=== PATIENT | male | born 1955 | race Caucasian/White ===

== ENCOUNTER → 2021-04-14 10:00 | Outpatient (CLI) | payer OTHER, SELFPAY ==
[2021-04-14 10:46] LABS: COVID19 -Nasal RAPID POSITIVE (Negative)
== END ==
PROVIDERS: PCP Nurse Practitioner Family; Referring Provider Nurse Practitioner; Visit Provider Nurse Practitioner
DX: U07.1 COVID-19 (principal); R05 Cough
CPT/HCPCS: 87635

== ENCOUNTER → 2021-04-14 10:17 | Outpatient (CLI) | payer OTHER, SELFPAY ==
--- NOTE | 2021-04-14 10:19 | DI.RAD.S_ITS ---
PROCEDURE: XR CHEST 2V INDICATIONS: cough TECHNIQUE: 2 views of the chest were acquired. COMPARISON: None. FINDINGS: Surgical changes and devices: None. Lungs and pleura: Mild generalized interstitial prominence can be seen. No pleural effusions or pneumothorax. Mediastinum: Mediastinal contours are normal. Heart size is normal. A moderate to large hiatal hernia is seen, with an air-fluid level. Bones and chest wall: No suspicious bony abnormalities. Age-appropriate bony degenerative changes are seen. Accentuated thoracic kyphosis is seen. Soft tissues appear unremarkable. IMPRESSION: Interstitial prominence is seen throughout. The interstitial prominence is nonspecific, yet may be related to pulmonary edema. Please consider atypical infection, including COVID pneumonia. Moderate to large hiatal hernia incidentally noted. Dictated by: Mike Peres M.D. on 04/14/2021 at 9:27 Approved by: Mike Peres M.D. on 04/14/2021 at 9:28
== END ==
PROVIDERS: PCP Nurse Practitioner Family; Referring Provider Nurse Practitioner; Visit Provider Nurse Practitioner
DX: U07.1 COVID-19 (principal); R06.2 Wheezing; R05 Cough; K44.9 Diaphragmatic hernia without obstruction or gangrene; M40.204 Unspecified kyphosis, thoracic region
CPT/HCPCS: 71046; 87635

== ENCOUNTER 2021-04-15 23:57 | Inpatient (IN) | payer OTHER, SELFPAY ==
[2021-04-15] MEDS: LIDOCAINE JELLY 2% 5 ML 5 APPLIC TOP (23:58)
[2021-04-16] VITALS (20 sets, daily range): BP systolic 114–169; BP diastolic 70–99; PULSE 76–90; RESP 17–37; TEMP 36.5–38.1; O2SAT 87–95; BMI 33.6
--- NOTE | 2021-04-16 00:09 | ED_ITS ---
HPI - SOB/Dyspnea General Chief Complaint: Shortness of Breath/Dyspnea Stated Complaint: difficulty breathing Time Seen by Provider: 04/16/21 00:08 History of Present Illness HPI Narrative: 65-year-old male nonsmoker with history of asthma and hypertension presents with a chief complaint of worsening shortness of breath and cough for the past few days. He had had a moderate hacking cough that actually started few weeks ago but definitely had worsened over the past few days. He had a COVID test a few days ago and was called yesterday suggesting it was positive. He has had fever and chills as well as some nasal congestion and sore throat. He has mild body aches but no rigors. He has been nauseated and had decreased appetite has lost 12 lb. He denies any vomiting or diarrhea. Patient PCP is Yesi. Related Data Home Medications Medication Instructions Recorded Confirmed ketoconazole 2 % shampoo 1 applictn TOP 2XW PRN ml 04/07/19 04/14/21 ranitidine HCl 150 mg tablet 150 mg PO Q3D tab 10/18/19 04/14/21 Previous Rx's Medication Instructions Recorded losartan 50 mg tablet 50 mg PO DAILY #90 tab 10/19/19 hydrochlorothiazide 12.5 mg tablet 12.5 mg PO DAILY #30 tab 11/01/20 albuterol sulfate 90 mcg/actuation 2 puff INHALATION Q4-6H PRN #8.5 g 04/14/21 aerosol inhaler benzonatate 100 mg capsule 100 mg PO BID PRN #20 cap 04/14/21 (Tessalon Perles) inhalational spacing device #1 ea 04/14/21 (B[employer]he[employer] MDI Spacer) Allergies Allergy/AdvReac Type Severity Reaction Status Date / Time No Known Drug Allergies Allergy Verified 04/16/21 00:10 Review of Systems Review of Systems Narrative: GENERAL: See HPI HEENT: See HPI RESPIRATORY: See HPI CARDIOVASCULAR: Denies chest pain, palpitations, orthopnea, edema, GASTROINTESTINAL: Denies nausea, vomiting, abdominal pain, diarrhea, constipation, melena. : Denies dysuria, frequency, incontinence, hematuria, urinary retention. MUSCULOSKELETAL: denies weakness, joint pain, or bony pain SKIN: Denies rash, skin lesions, or other NEUROLOGIC: Denies weakness, headache, numbness, change in speech, confusion, seizures, incoordination. PSYCHIATRIC: No concerning psychosocial issues. 12 point review of systems is negative except for those stated above Patient History Surgical History Status post hernia repair Status post knee surgery Social History household members: spouse Smoking Status: Never smoker second hand exposure: Yes (I was when I was growing up) alcohol intake: never substance use type: does not use Smoking Status: Never smoker Exam Narrative Exam Narrative: GENERAL: [65] year old patient appears stated age. Well- developed patient, in mild distress. Increased work of breathing, pulse ox in mid 80s on room air at arrival HEAD: Atraumatic. Normocephalic. EYES: Pupils equal round and reactive. Extraocular motions intact. No scleral icterus. No injection or drainage. ENT: Nose without bleeding, purulent drainage. Throat without erythema, tonsillar hypertrophy or exudate. Airway patent. NECK: Trachea midline. Non tender CARDIOVASCULAR: Regular rate and rhythm without murmurs, gallops, or rubs. RESPIRATORY: Crackles throughout, increased work of breathing noted GASTROINTESTINAL: Abdomen soft, non-tender, nondistended. EXTREMITIES: No edema or joint tenderness. BACK: Nontender without deformity or crepitance. No flank tenderness. NEURO: AOx3. SKIN: No rash or erythema of visible areas Initial Vital Signs Initial Vital Signs: Vital Signs Pulse Rate 88 04/16/21 00:07 Pulse Oximetry 87 L 04/16/21 00:07 Course Orders Ordered: ED Orders 04/16/21 00:10 XR chest 1V Stat Arterial Blood Gas Stat EKG-12 Lead Stat 04/16/21 00:30 Blood Culture Stat C-Reactive Protein Quant Stat Complete Blood Count AUTO DIFF Stat Comprehensive Metabolic Panel Stat D Dimer Stat Ferritin Stat Lactate (Lactic Acid) Stat Lactate Dehydrogenase Stat NT-proBNP (BNP-Adult 18+) Stat Procalcitonin Stat Troponin & CK Cardiac Panel Stat 04/16/21 00:40 Respiratory Panel (Film Array) Stat Benzonatate (Benzonatate 100 Mg Capsule) 100 mg PO BID PRN PRN Reason: cough Enoxaparin Sodium (Enoxaparin 40 Mg/0.4 Ml Syringe) 40 mg SUBCUT DAILY KITA Losartan Potassium (Losartan 50 Mg Tablet) 50 mg PO DAILY KITA Non-Formulary Medication (Hydrochlorothiazide) 12.5 mg PO DAILY KITA Discontinued Medications Acetaminophen (Acetaminophen 325 Mg Tablet) 650 mg PO NOW ONE Stop: 04/16/21 00:55 Last Admin: 04/16/21 00:57 Dose: 650 mg Documented by: REJI Dexamethasone (Dexamethasone 10 Mg/Ml Vial) 6 mg IV NOW ONE Stop: 04/16/21 00:10 Last Admin: 04/16/21 00:48 Dose: 6 mg Documented by: DAPHNEY Remdesivir 200 mg/ Sodium (Chloride) 250 mls @ 250 mls/hr IV NOW ONE Stop: 04/16/21 00:10 Last Infusion: 04/16/21 02:02 Dose: 0 mls/hr Documented by: Admin: 04/16/21 00:48 Dose: 250 mls/hr Documented by: DAPHNEY Reevaluation(s) Reevaluation #1: Patient improves to SpO2 of low 90s with 2-3 L by nasal cannula Vital Signs Vital signs: Vital Signs - 8 hr 04/16/21 00:07 04/16/21 00:10 04/16/21 00:30 Temperature Pulse Rate 88 87 80 Respiratory Rate 28 H Blood Pressure 142/79 H Pulse Oximetry 87 L 88 L 92 04/16/21 00:31 04/16/21 00:57 04/16/21 00:58 Temperature 100.5 F H 100.5 F H Pulse Rate 82 Respiratory Rate Blood Pressure 136/78 Pulse Oximetry 91 04/16/21 01:00 04/16/21 01:30 04/16/21 02:00 Temperature Pulse Rate 81 79 80 Respiratory Rate 24 37 H 33 H Blood Pressure 152/76 H 160/81 H 169/98 H Pulse Oximetry 91 91 93 04/16/21 02:05 04/16/21 02:30 Temperature 98.7 F Pulse Rate 85 Respiratory Rate Blood Pressure 168/88 H Pulse Oximetry 91 MDM - SOB/Dyspnea Lab Data Result diagrams: 04/16/21 00:30 04/16/21 00:30 Labs: Lab Results 04/16/21 04/16/21 04/16/21 Range/Units 00:10 00:30 00:30 WBC (4.5-11.0) X10^3/uL RBC (4.5-5.9) X10^6/uL Hgb (13.5-17.5) g/dL Hct (41-53) % MCV (80-100) fL MCH (26-34) PG MCHC (30-36) % RDW (11.6-14.8) % Plt Count (150-400) X10^3/uL Neut % (Auto) (50-75) % Lymph % (Auto) (25-40) % Real % (Auto) (3-14) % Eos % (Auto) (2-4) % Baso % (Auto) (0-2) % Neut # (Auto) (7058-2620) /uL Lymph # (Auto) (4140-0374) /uL Real # (Auto) (0-900) /uL Eos # (Auto) (0-450) /uL Baso # (Auto) (0-100) /uL D-Dimer 552 H (<230) ng/mL ABG pH 7.50 H (7.35-7.45) ABG pCO2 32.4 L (35-45) mmHg ABG pO2 63 L (80-100) mmHg ABG HCO3 25 (22-26) mmol/L ABG Total CO2 26 (21-31) mmol/L ABG O2 Saturation 94 L (95-100) % ABG Base Excess 2.0 (-2-2) mmol/L FiO2 28 Sodium (137-145) mmol/L Potassium (3.4-5.1) mmol/L Chloride (98-107) mmol/L Carbon Dioxide (22-32) mmol/L BUN (9-20) mg/dL Creatinine (0.66-1.25) mg/dL Estimated GFR (>60) mL/min BUN/Creatinine Ratio (6-22) Glucose (80-110) mg/dL Lactate (0.7-2.1) mmol/L Calcium (8.4-10.2) mg/dL Ferritin (18-464) ng/mL Total Bilirubin (0.2-1.3) mg/dL AST (17-59) IU/L ALT (<50) IU/L Alkaline Phosphatase (38-126) U/L Lactate Dehydrogenase (313-618) U/L Total Creatine Kinase (55-170) U/L CK-MB (CK-2) (<2.37) ng/mL CK-MB (CK-2) Rel Index (1.5-5.0) % Troponin I (0.01-0.034) ng/mL C-Reactive Protein (<1.0) mg/dL NT-Pro-B Natriuret Pep (<125) pg/mL Total Protein (6.3-8.2) g/dL Albumin (3.5-5.0) g/dL Globulin (1.7-4.1) g/dL Albumin/Globulin Ratio (1.0-2.8) Procalcitonin 0.26 (<0.5) ng/mL Chlamy pneumoniae PCR (Not Detect) Adenovirus (PCR) (Not Detect) B. pertussis DNA (PCR) (Not Detecte) B.parapertussis DNA PCR (Not Detecte) Coronavirus OC43 (PCR) (Not Detect) Coronavirus HKU1 (PCR) (Not Detect) Coronavirus 229E (PCR) (Not Detect) SARS-CoV-2 (PCR) (Not Detecte) Coronavirus NL63 (PCR) (Not Detect) Human Metapneumovir PCR (Not Detect) Influenza Type A (PCR) (Not Detect) Influenza Type B (PCR) (Not Detect) M. pneumoniae (PCR) (Not Detect) Parainfluenza 1 (PCR) (Not Detect) Parainfluenza 2 (PCR) (Not Detect) Parainfluenza 3 (PCR) (Not Detect) Parainfluenza 4 (PCR) (Not Detect) RSV (PCR) (Not Detect) Entero/Rhino (PCR) (Not Detect) 04/16/21 04/16/21 04/16/21 Range/Units 00:30 00:30 00:30 WBC 7.9 (4.5-11.0) X10^3/uL RBC 4.63 (4.5-5.9) X10^6/uL Hgb 12.9 L (13.5-17.5) g/dL Hct 38.7 L (41-53) % MCV 83.6 (80-100) fL MCH 27.9 (26-34) PG MCHC 33.4 (30-36) % RDW 14.7 (11.6-14.8) % Plt Count 144 L (150-400) X10^3/uL Neut % (Auto) 89.9 H (50-75) % Lymph % (Auto) 5.5 L (25-40) % Real % (Auto) 4.2 (3-14) % Eos % (Auto) 0.0 L (2-4) % Baso % (Auto) 0.4 (0-2) % Neut # (Auto) 7100 H (7125-3759) /uL Lymph # (Auto) 400 L (5041-6003) /uL Real # (Auto) 300 (0-900) /uL Eos # (Auto) 0 (0-450) /uL Baso # (Auto) 0 (0-100) /uL D-Dimer (<230) ng/mL ABG pH (7.35-7.45) ABG pCO2 (35-45) mmHg ABG pO2 (80-100) mmHg ABG HCO3 (22-26) mmol/L ABG Total CO2 (21-31) mmol/L ABG O2 Saturation (95-100) % ABG Base Excess (-2-2) mmol/L FiO2 Sodium 140 (137-145) mmol/L Potassium 3.5 (3.4-5.1) mmol/L Chloride 105 (98-107) mmol/L Carbon Dioxide 26 (22-32) mmol/L BUN 35 H (9-20) mg/dL Creatinine 1.04 (0.66-1.25) mg/dL Estimated GFR > 60.0 (>60) mL/min BUN/Creatinine Ratio 33.7 H (6-22) Glucose 128 H (80-110) mg/dL Lactate 1.2 (0.7-2.1) mmol/L Calcium 8.5 (8.4-10.2) mg/dL Ferritin 266 (18-464) ng/mL Total Bilirubin 0.9 (0.2-1.3) mg/dL AST 148 H (17-59) IU/L ALT 59 H (<50) IU/L Alkaline Phosphatase 54 (38-126) U/L Lactate Dehydrogenase 1879 H (313-618) U/L Total Creatine Kinase 1572 H (55-170) U/L CK-MB (CK-2) 5.35 H (<2.37) ng/mL CK-MB (CK-2) Rel Index 0.3 L (1.5-5.0) % Troponin I 0.017 (0.01-0.034) ng/mL C-Reactive Protein 21.7 H (<1.0) mg/dL NT-Pro-B Natriuret Pep 166 H (<125) pg/mL Total Protein 6.9 (6.3-8.2) g/dL Albumin 3.7 (3.5-5.0) g/dL Globulin 3.2 (1.7-4.1) g/dL Albumin/Globulin Ratio 1.2 (1.0-2.8) Procalcitonin (<0.5) ng/mL Chlamy pneumoniae PCR (Not Detect) Adenovirus (PCR) (Not Detect) B. pertussis DNA (PCR) (Not Detecte) B.parapertussis DNA PCR (Not Detecte) Coronavirus OC43 (PCR) (Not Detect) Coronavirus HKU1 (PCR) (Not Detect) Coronavirus 229E (PCR) (Not Detect) SARS-CoV-2 (PCR) (Not Detecte) Coronavirus NL63 (PCR) (Not Detect) Human Metapneumovir PCR (Not Detect) Influenza Type A (PCR) (Not Detect) Influenza Type B (PCR) (Not Detect) M. pneumoniae (PCR) (Not Detect) Parainfluenza 1 (PCR) (Not Detect) Parainfluenza 2 (PCR) (Not Detect) Parainfluenza 3 (PCR) (Not Detect) Parainfluenza 4 (PCR) (Not Detect) RSV (PCR) (Not Detect) Entero/Rhino (PCR) (Not Detect) 04/16/21 Range/Units 00:40 WBC (4.5-11.0) X10^3/uL RBC (4.5-5.9) X10^6/uL Hgb (13.5-17.5) g/dL Hct (41-53) % MCV (80-100) fL MCH (26-34) PG MCHC (30-36) % RDW (11.6-14.8) % Plt Count (150-400) X10^3/uL Neut % (Auto) (50-75) % Lymph % (Auto) (25-40) % Real % (Auto) (3-14) % Eos % (Auto) (2-4) % Baso % (Auto) (0-2) % Neut # (Auto) (5154-4023) /uL Lymph # (Auto) (5794-2566) /uL Real # (Auto) (0-900) /uL Eos # (Auto) (0-450) /uL Baso # (Auto) (0-100) /uL D-Dimer (<230) ng/mL ABG pH (7.35-7.45) ABG pCO2 (35-45) mmHg ABG pO2 (80-100) mmHg ABG HCO3 (22-26) mmol/L ABG Total CO2 (21-31) mmol/L ABG O2 Saturation (95-100) % ABG Base Excess (-2-2) mmol/L FiO2 Sodium (137-145) mmol/L Potassium (3.4-5.1) mmol/L Chloride (98-107) mmol/L Carbon Dioxide (22-32) mmol/L BUN (9-20) mg/dL Creatinine (0.66-1.25) mg/dL Estimated GFR (>60) mL/min BUN/Creatinine Ratio (6-22) Glucose (80-110) mg/dL Lactate (0.7-2.1) mmol/L Calcium (8.4-10.2) mg/dL Ferritin (18-464) ng/mL Total Bilirubin (0.2-1.3) mg/dL AST (17-59) IU/L ALT (<50) IU/L Alkaline Phosphatase (38-126) U/L Lactate Dehydrogenase (313-618) U/L Total Creatine Kinase (55-170) U/L CK-MB (CK-2) (<2.37) ng/mL CK-MB (CK-2) Rel Index (1.5-5.0) % Troponin I (0.01-0.034) ng/mL C-Reactive Protein (<1.0) mg/dL NT-Pro-B Natriuret Pep (<125) pg/mL Total Protein (6.3-8.2) g/dL Albumin (3.5-5.0) g/dL Globulin (1.7-4.1) g/dL Albumin/Globulin Ratio (1.0-2.8) Procalcitonin (<0.5) ng/mL Chlamy pneumoniae PCR Not detected (Not Detect) Adenovirus (PCR) Not detected (Not Detect) B. pertussis DNA (PCR) Not detected (Not Detecte) B.parapertussis DNA PCR Not detected (Not Detecte) Coronavirus OC43 (PCR) Not detected (Not Detect) Coronavirus HKU1 (PCR) Not detected (Not Detect) Coronavirus 229E (PCR) Not detected (Not Detect) SARS-CoV-2 (PCR) Detected H (Not Detecte) Coronavirus NL63 (PCR) Not detected (Not Detect) Human Metapneumovir PCR Not detected (Not Detect) Influenza Type A (PCR) Not detected (Not Detect) Influenza Type B (PCR) Not detected (Not Detect) M. pneumoniae (PCR) Not detected (Not Detect) Parainfluenza 1 (PCR) Not detected (Not Detect) Parainfluenza 2 (PCR) Not detected (Not Detect) Parainfluenza 3 (PCR) Not detected (Not Detect) Parainfluenza 4 (PCR) Not detected (Not Detect) RSV (PCR) Not detected (Not Detect) Entero/Rhino (PCR) Not detected (Not Detect) MDM Narrative Medical decision making narrative: Patient with known COVID presents with increasing respiratory complaint and shortness of breath. He now requires supplemental oxygen. ABG notes P02 in low 60s on 2L. He will require hospitaliza tion for ongoing monitoring and stabilization of his condition. Given hospitalization requiring oxygen he has been given remdesivir and Decadron. Discharge Plan Departure Patient Disposition: Admitted As Inpatient Clinical Impression: COVID-19, Acute respiratory failure with hypoxemia Admit Date/Time: 04/16/21 02:53 Admit Provider: Vamshi Key
--- NOTE | 2021-04-16 00:10 | DI.RAD.S_ITS ---
PROCEDURE: XR CHEST 1V INDICATIONS: flu-like symptoms TECHNIQUE: One view of the chest was acquired. COMPARISON: None. FINDINGS: Surgical changes and devices: None. Lungs and pleura: Patchy opacities in the lungs bilaterally. No pleural effusions or pneumothorax. Mediastinum: Mediastinal contours appear normal. Heart size is normal. Bones and chest wall: No suspicious bony lesions. Overlying soft tissues appear unremarkable. IMPRESSION: Bilateral lung multilobar pneumonia. Dictated by: Gia Lewis MD, PhD on 04/16/2021 at 8:17 Approved by: Gia Lewis MD, PhD on 04/16/2021 at 8:17
[2021-04-16] MEDS: DEXAMETHASONE 10 MG/ML VIAL 6 MG IV ×2 (00:48→09:03)
[2021-04-16] MEDS: REMDESIVIR 200 MG in SODIUM CHLORIDE 0.9% 210 ML 250 ML IV (00:48)
[2021-04-16 00:56] LABS: Fractionated Inspired Oxygen 28; HCO3 ABG 25 mmol/L (22-26); Oxygen Saturation ABG 94 % (95-100); PCO2 ABG 32.4 mmHg (35-45); PO2 ABG 63 mmHg (80-100); TCO2 ABG 26 mmol/L (21-31)
[2021-04-16 00:56] LABS: Add Manual Diff / Slide Review NO; Basophils Absolute Auto 0 /uL (0-100); Basophils Percent Auto 0.4 % (0-2); Eosinophils Absolute Auto 0 /uL (0-450); Hematocrit 38.7 % (41-53); Hemoglobin 12.9 g/dL (13.5-17.5); Lymphocytes Absolute Auto 400 /uL (1100-4500); Lymphocytes Percent Auto 5.5 % (25-40); Mean Corpuscular HGB Conc 33.4 % (30-36); Mean Corpuscular Hemoglobin 27.9 PG (26-34); Mean Corpuscular Volume 83.6 fL (80-100); Monocytes Absolute Auto 300 /uL (0-900); Monocytes Percent Auto 4.2 % (3-14); Neutrophils Absolute Auto 7100 /uL (1500-7000); Neutrophils Percent Auto 89.9 % (50-75); Platelet Count 144 X10^3/uL (150-400); Red Blood Cell Count 4.63 X10^6/uL (4.5-5.9); Red Cell Distribution Width 14.7 % (11.6-14.8); White Blood Cell Count 7.9 X10^3/uL (4.5-11.0)
[2021-04-16] MEDS: ACETAMINOPHEN 325 MG TABLET 650 MG PO (00:57)
[2021-04-16 01:08] LABS: D Dimer 552 ng/mL (<230)
[2021-04-16 01:09] LABS: Lactate (Lactic Acid) 1.2 mmol/L (0.7-2.1)
[2021-04-16 01:21] LABS: Alanine Aminotransferase 59 IU/L (<50); Albumin 3.7 g/dL (3.5-5.0); Albumin Globulin Ratio 1.2 (1.0-2.8); Alkaline Phosphatase 54 U/L (38-126); Aspartate Aminotransferase 148 IU/L (17-59); BUN Creatinine Ratio 33.7 (6-22); Bilirubin Total 0.9 mg/dL (0.2-1.3); Blood Urea Nitrogen 35 mg/dL (9-20); Calcium 8.5 mg/dL (8.4-10.2); Carbon Dioxide 26 mmol/L (22-32); Chloride 105 mmol/L (98-107); Creatine Kinase 1572 U/L (55-170); Estimated Glomerular Filt Rate > 60.0 mL/min (>60); Globulin 3.2 g/dL (1.7-4.1); Glucose 128 mg/dL (80-110); HEMOLYSIS < 15 (0-50); Lactate Dehydrogenase 1879 U/L (313-618); Potassium 3.5 mmol/L (3.4-5.1); Sodium 140 mmol/L (137-145); Total Protein 6.9 g/dL (6.3-8.2)
[2021-04-16 01:27] LABS: Procalcitonin 0.26 ng/mL (<0.5)
[2021-04-16 01:30] LABS: NT-proBNP (BNP-Adult 18+) 166 pg/mL (<125); Troponin I 0.017 ng/mL (0.01-0.034)
[2021-04-16 01:33] LABS: CKMB % Relative Index 0.3 % (1.5-5.0); Creatine Kinase MB 5.35 ng/mL (<2.37)
[2021-04-16 01:39] LABS: C-Reactive Protein Quant 21.7 mg/dL (<1.0)
[2021-04-16 01:45] LABS: Adenovirus Not Detected (Not Detect); B. parapertussis Not Detected (Not Detecte); Bordetella pertussis Not Detected (Not Detecte); Chlamydophila pneumoniae Not Detected (Not Detect); Coronavirus 229E Not Detected (Not Detect); Coronavirus HKU1 Not Detected (Not Detect); Coronavirus NL 63 Not Detected (Not Detect); Coronavirus OC43 Not Detected (Not Detect); Human Metapneumovirus Not Detected (Not Detect); Human Rhinovirus/Enterovirus Not Detected (Not Detect); Influenza A Not Detected (Not Detect); Influenza B Not Detected (Not Detect); Mycoplasma pneumoniae Not Detected (Not Detect); Parainfluenza Virus 1 Not Detected (Not Detect); Parainfluenza Virus 2 Not Detected (Not Detect); Parainfluenza Virus 3 Not Detected (Not Detect); Parainfluenza Virus 4 Not Detected (Not Detect); Respiratory Syncytial Virus Not Detected (Not Detect)
[2021-04-16 01:51] LABS: SARS- CoV-2 Detected (Not Detecte)
[2021-04-16 01:53] LABS: Ferritin 266 ng/mL (18-464)
--- NOTE | 2021-04-16 04:21 | PC.NURSE ---
Pt. admitted to room 219 from ER. Oriented to his room, showed how to use his call light, TV & bed controls. Encouraged to call staff for any assistance or if he needed to go to the [facility]. Denies any fall at home, no C/O dyspnea, no wheezing noted. Intermittent non productive cough, no C/O pain. Will continue POC & monitor.
--- NOTE | 2021-04-16 08:43 | PM.HP.1 ---
History of Present Illness History of Present Illness Date Patient Seen: 04/16/21 Time Patient Seen: 08:44 Chief complaint: difficulty breathing Narrative: Mr. Dueñas is a very pleasant 65-year-old gentleman who is under the primary care of Dr. Key. He is otherwise fairly healthy other than hypertension and presents is emergency department with worsening shortness of breath with a known diagnosis of COVID-19 illness. He was found to have a O2 sat on room air of 85% and be tachypneic working hard to breathe. Laboratory data, a respiratory panel, inflammatory markers and chest x-ray all are suspicious for COVID-19 illness. The patient was given REMdesivir and Decadron in the ER and is feeling better today on 2 L of nasal cannula oxygen. Patient's history prior to admission is remarkable for having a dry cough starting in the beginning of March. He presented to see his primary care doctor and had COVID testing on March 20. This was negative. He continued to have a dry cough and feels that his symptoms worsened and he felt more poorly and cough was worsening in the beginning of April. He had his 1st COVID vaccine on April 10. He then was tested for COVID on April 11 and was positive. His symptoms became significantly worse last night prior to admission and he was found to be hypoxic admitted for the same. He denies nausea, vomiting, diarrhea. He does complain of diaphoresis. He denies any chest pain. He denies any lower extremity edema. He denies any headaches or myalgias. He denies any abdominal pain Past medical history: 1. GERD 2. Hypertension 3. History of SVT, no current treatment 4. Erectile dysfunction Medications: Losartan 50 mg daily Hydrochlorothiazide 12.5 mg daily Multi-vitamin daily Omeprazole 20 mg daily Allergies no known drug allergies Past surgical history 1. Hernia repair in May of 2018 2. Knee surgery Family history Father at 82 of natural causes and had had a prior stroke Mother at 76 of lung cancer. Mother also had hypertension Patient with 3 siblings who are alive and well Health related behavior: Patient is a nonsmoker and never has been a smoker Patient does not use regular alcohol Patient does not use illicit drugs Social history Patient is Patient has 2 children Jennifer born In 1979 and Everardo born in 1982 Patient is retired and lives in an [facility] Review of systems negative other than HPI Patient History Surgical History Status post hernia repair Status post knee surgery Family & Social History Social History: household members spouse Prior Living Arrangements House Safety & Behavioral: Feels Safe in Current Yes Environment Been Physically Hurt or No Threatened By a Person Suicidal Ideation Description None Suicide Plan Description No Plan Tobacco & Substance use: Smoking Status Never smoker alcohol intake never Substance Use Type does not use Meds Home Medications and Allergies Home Medications Medication Instructions Recorded Confirmed Type ranitidine HCl 150 mg tablet 150 mg PO Q3D tab 10/18/19 04/16/21 History losartan 50 mg tablet 50 mg PO DAILY #90 tab 10/19/19 04/16/21 Rx hydrochlorothiazide 12.5 mg tablet 12.5 mg PO DAILY #30 tab 11/01/20 04/16/21 Rx albuterol sulfate 90 mcg/actuation 2 puff INHALATION Q4-6H PRN #8.5 g 04/14/21 04/16/21 Rx aerosol inhaler benzonatate 100 mg capsule 100 mg PO BID PRN #20 cap 04/14/21 04/16/21 Rx (Tessalon Perles) inhalational spacing device #1 ea 04/14/21 04/16/21 Rx (BreatheRite MDI Spacer) Allergies Allergy/AdvReac Type Severity Reaction Status Date / Time No Known Drug Allergies Allergy Verified 04/16/21 00:10 Review of Systems Review of Systems Narrative: Negative other than HPI Exam Vital Signs (past 8 hours): - 04/16/21 00:57 04/16/21 00:58 04/16/21 01:00 Temperature 100.5 F H 100.5 F H Pulse Rate 81 Respiratory Rate 24 Blood Pressure 152/76 H Pulse Oximetry 91 04/16/21 01:30 04/16/21 02:00 04/16/21 02:05 Temperature 98.7 F Pulse Rate 79 80 Respiratory Rate 37 H 33 H Blood Pressure 160/81 H 169/98 H Pulse Oximetry 91 93 04/16/21 02:30 04/16/21 03:15 Temperature 98.0 F Pulse Rate 85 84 Respiratory Rate 18 Blood Pressure 168/88 H 114/71 Pulse Oximetry 91 95 Oxygen Delivery Method Room Air Oxygen Flow Rate 2 Narrative Exam Narrative: Patient is alert and oriented no apparent distress. He sitting upright on the hospital bed no apparent distress. There is no increased work of breathing. He is resting comfortably with 2 L of nasal cannula oxygen Vital signs are stable O2 sats 95% on 2 L nasal cannula HEENT is unremarkable Neck: Supple without adenopathy or thyromegaly or bruits Chest: Bibasilar crackles but otherwise clear to auscultation Cor: Regular rate and rhythm without a murmur Abdomen: Positive bowel sounds, soft, obese Extremities: Trace nonpitting edema pretibial Pulses intact Neurologic exam nonfocal Objective Labs Result Diagrams: 04/16/21 00:30 04/16/21 00:30 Labs: Laboratory Results - last 24 hr 04/16/21 04/16/21 04/16/21 00:30 00:30 WBC RBC Hgb Hct MCV MCH MCHC RDW Plt Count Neut % (Auto) Lymph % (Auto) Stanly % (Auto) Eos % (Auto) Baso % (Auto) Neut # (Auto) Lymph # (Auto) Stanly # (Auto) Eos # (Auto) Baso # (Auto) D-Dimer 552 H ABG pH 7.50 H ABG pCO2 32.4 L ABG pO2 63 L ABG HCO3 25 ABG Total CO2 26 ABG O2 Saturation 94 L ABG Base Excess 2.0 FiO2 28 Sodium Potassium Chloride Carbon Dioxide BUN Creatinine Estimated GFR BUN/Creatinine Ratio Glucose Lactate Calcium Ferritin Total Bilirubin AST ALT Alkaline Phosphatase Lactate Dehydrogenase Total Creatine Kinase CK-MB (CK-2) CK-MB (CK-2) Rel Index Troponin I C-Reactive Protein NT-Pro-B Natriuret Pep Total Protein Albumin Globulin Albumin/Globulin Ratio Procalcitonin 0.26 Chlamy pneumoniae PCR Adenovirus (PCR) B. pertussis DNA (PCR) B.parapertussis DNA PCR Coronavirus OC43 (PCR) Coronavirus HKU1 (PCR) Coronavirus 229E (PCR) SARS-CoV-2 (PCR) Coronavirus NL63 (PCR) Human Metapneumovir PCR Influenza Type A (PCR) Influenza Type B (PCR) M. pneumoniae (PCR) Parainfluenza 1 (PCR) Parainfluenza 2 (PCR) Parainfluenza 3 (PCR) Parainfluenza 4 (PCR) RSV (PCR) Entero/Rhino (PCR) 04/16/21 04/16/21 04/16/21 00:30 00:30 00:30 WBC 7.9 RBC 4.63 Hgb 12.9 L Hct 38.7 L MCV 83.6 MCH 27.9 MCHC 33.4 RDW 14.7 Plt Count 144 L Neut % (Auto) 89.9 H Lymph % (Auto) 5.5 L Stanly % (Auto) 4.2 Eos % (Auto) 0.0 L Baso % (Auto) 0.4 Neut # (Auto) 7100 H Lymph # (Auto) 400 L Stanly # (Auto) 300 Eos # (Auto) 0 Baso # (Auto) 0 D-Dimer ABG pH ABG pCO2 ABG pO2 ABG HCO3 ABG Total CO2 ABG O2 Saturation ABG Base Excess FiO2 Sodium 140 Potassium 3.5 Chloride 105 Carbon Dioxide 26 BUN 35 H Creatinine 1.04 Estimated GFR > 60.0 BUN/Creatinine Ratio 33.7 H Glucose 128 H Lactate 1.2 Calcium 8.5 Ferritin 266 Total Bilirubin 0.9 AST 148 H ALT 59 H Alkaline Phosphatase 54 Lactate Dehydrogenase 1879 H Total Creatine Kinase 1572 H CK-MB (CK-2) 5.35 H CK-MB (CK-2) Rel Index 0.3 L Troponin I 0.017 C-Reactive Protein 21.7 H NT-Pro-B Natriuret Pep 166 H Total Protein 6.9 Albumin 3.7 Globulin 3.2 Albumin/Globulin Ratio 1.2 Procalcitonin Chlamy pneumoniae PCR Adenovirus (PCR) B. pertussis DNA (PCR) B.parapertussis DNA PCR Coronavirus OC43 (PCR) Coronavirus HKU1 (PCR) Coronavirus 229E (PCR) SARS-CoV-2 (PCR) Coronavirus NL63 (PCR) Human Metapneumovir PCR Influenza Type A (PCR) Influenza Type B (PCR) M. pneumoniae (PCR) Parainfluenza 1 (PCR) Parainfluenza 2 (PCR) Parainfluenza 3 (PCR) Parainfluenza 4 (PCR) RSV (PCR) Entero/Rhino (PCR) 04/16/21 00:40 WBC RBC Hgb Hct MCV MCH MCHC RDW Plt Count Neut % (Auto) Lymph % (Auto) Stanly % (Auto) Eos % (Auto) Baso % (Auto) Neut # (Auto) Lymph # (Auto) Stanly # (Auto) Eos # (Auto) Baso # (Auto) D-Dimer ABG pH ABG pCO2 ABG pO2 ABG HCO3 ABG Total CO2 ABG O2 Saturation ABG Base Excess FiO2 Sodium Potassium Chloride Carbon Dioxide BUN Creatinine Estimated GFR BUN/Creatinine Ratio Glucose Lactate Calcium Ferritin Total Bilirubin AST ALT Alkaline Phosphatase Lactate Dehydrogenase Total Creatine Kinase CK-MB (CK-2) CK-MB (CK-2) Rel Index Troponin I C-Reactive Protein NT-Pro-B Natriuret Pep Total Protein Albumin Globulin Albumin/Globulin Ratio Procalcitonin Chlamy pneumoniae PCR Not detected Adenovirus (PCR) Not detected B. pertussis DNA (PCR) Not detected B.parapertussis DNA PCR Not detected Coronavirus OC43 (PCR) Not detected Coronavirus HKU1 (PCR) Not detected Coronavirus 229E (PCR) Not detected SARS-CoV-2 (PCR) Detected H Coronavirus NL63 (PCR) Not detected Human Metapneumovir PCR Not detected Influenza Type A (PCR) Not detected Influenza Type B (PCR) Not detected M. pneumoniae (PCR) Not detected Parainfluenza 1 (PCR) Not detected Parainfluenza 2 (PCR) Not detected Parainfluenza 3 (PCR) Not detected Parainfluenza 4 (PCR) Not detected RSV (PCR) Not detected Entero/Rhino (PCR) Not detected Assessment & Plan Assessment & Plan narrative: 65-year-old male admitted with respiratory illness causing hypoxia due to COVID-19 illness Plan: Patient will be admitted to the hospital and expect at least 2 midnight stays due to current illness. Will continue Decadron 6 mg daily and REMdesivir 100 mg daily for 10 days or will discontinue once oxygen requirements subside. Will reassess inflammatory markers in a.m. Will continue with supplemental oxygen plan Will continue with respiratory therapy and albuterol nebulizers as needed Assessment 2. Hypertension well controlled Plan: Continue outpatient medications of losartan and hydrochlorothiazide Assessment 3. Normocytic anemia. Peers he had this in 2018 as well. Plan: Will continue to trend. Assessment 4. History of GERD Plan: Will continue with PPI A total of 65 minutes was spent with patient discussing with ER physician, reviewing chart meeting with patient, documenting and formulating a plan Code status is full code Quality VTE Deep Vein Thrombosis/Pulmonary Embolism Present on Admission: No
[2021-04-16] MEDS: ENOXAPARIN 40 MG/0.4 ML SYRINGE SUBCUT (09:04)
[2021-04-16] MEDS: LOSARTAN 50 MG TABLET PO (09:04)
[2021-04-16] MEDS: hydroCHLOROthiazide 25 MG TABLET 12.5 MG PO (09:04)
[2021-04-16] MEDS: SODIUM CHLORIDE 0.9% FLUSH 10 ML IV ×2 (09:05→21:32)
--- NOTE | 2021-04-16 10:50 | CM.DANOTE ---
DCP: Case received, EMR reviewed. Did not meet with patient, secondary to being COVID positive. Attempted to call room, no answer. Completed DCP assessment based upon information available. Patient is a 65 year old male who admitted early this morning to the care of the hospitalist team. PCP: Dr Key Payer: confirmed: [employer]. Patient came to the hospital via private vehicle secondary to increased shortness of breath. Patient holds diagnosis of COVID/Pneumonia. Patient had a cough in March, was tested then for COVID, and was negative. He received first vaccine on 04/10, was tested on 04/11 and was positive. Patient has noted hypoxia, and is here for oxygen support. He also has history of asthma, as well as HTN. Patient resides in [place] with his , Becky. He looks to be independent upon his baseline based upon information in the chart. Attempted to call patient's room with no answer, and no cell phone. P: DCP will continue to check in and monitor for any needs. Patient should be able to go home when he is medically stable. Gregoria Rendon, OLEKSANDR/Tech Ed/Woodshop Teacher
[2021-04-16] MEDS: BENZONATATE 100 MG CAPSULE PO (11:12)
--- NOTE | 2021-04-16 14:46 | PC.NURSE ---
A&Ox4. VSS. On 2L nasal cannula sating 90%. Non productive cough, given PRN benzonatate which provided mild relief. Denies pain. Independent in room. No nausea of vomiting. Good appetite. Call light within reach, bed low.
--- NOTE | 2021-04-16 18:53 | PC.NURSE ---
Addendum entered by Chrissy Nesbitt R.N. 04/16/21 19:08: Dr. Mendoza discussed with Dr. Elias and MOJGAN Henderson. They recommend proning while sleeping, RT consult, lorazepam which has been ordered already, as well as codeine for cough Original Note: Call placed to Dr. Mendoza who is blood donor unit assistant due to patient requiring 3.5 to 4L of oxygen at this point (increased from 1.5L on day shift). Patient oxygen saturation is at 91%. Dr. Mendoza was made aware of increased oxygen needs. Also discussed possible medication for sleep as patient has not slept since 0700 yesterday. Lorazepam 0.5mg q2hrs prn for sleep/anxiety as ordered.
[2021-04-16] MEDS: LORazepam 2 MG/ML INJ 0.5 MG IV (19:24)
[2021-04-16] MEDS: BENZONATATE 100 MG CAPSULE 200 MG PO ×2 (19:24→21:32)
[2021-04-16] MEDS: guaiFENesin ER 600 MG TAB PO (21:32)
[2021-04-16] MEDS: REMDESIVIR 100 MG in SODIUM CHLORIDE 0.9% 230 ML 250 ML IV (21:32)
[2021-04-16] MEDS: SODIUM CHLORIDE 0.9% 250 ML 21 ML IV (21:40)
[2021-04-16] MEDS: ALBUTEROL 2.5 MG/3 ML NEB (ADULT) INH (23:03)
[2021-04-17] VITALS (24 sets, daily range): BP systolic 119–159; BP diastolic 57–95; PULSE 72–96; RESP 12–36; TEMP 31–37.2; O2SAT 84–97
[2021-04-17] MEDS: LORazepam 2 MG/ML INJ 0.5 MG IV ×3 (03:54→20:54)
[2021-04-17 05:07] LABS: pH ABG 7.49 (7.35-7.45)
[2021-04-17 05:08] LABS: HCO3 ABG 27 mmol/L (22-26); Oxygen Saturation ABG 93 % (95-100); PCO2 ABG 35.7 mmHg (35-45); PO2 ABG 62 mmHg (80-100); TCO2 ABG 28 mmol/L (21-31)
[2021-04-17 05:11] LABS: Fractionated Inspired Oxygen 80
[2021-04-17] MEDS: ALBUTEROL 2.5 MG/3 ML NEB (ADULT) INH ×4 (06:20→23:41)
[2021-04-17 06:31] LABS: Add Manual Diff / Slide Review NO; Basophils Absolute Auto 0 /uL (0-100); Basophils Percent Auto 0.2 % (0-2); Eosinophils Absolute Auto 0 /uL (0-450); Hemoglobin 12.2 g/dL (13.5-17.5); Lymphocytes Absolute Auto 600 /uL (1100-4500); Lymphocytes Percent Auto 7.1 % (25-40); Mean Corpuscular Hemoglobin 27.7 PG (26-34); Monocytes Absolute Auto 600 /uL (0-900); Monocytes Percent Auto 7.1 % (3-14); Neutrophils Absolute Auto 7500 /uL (1500-7000); Neutrophils Percent Auto 85.6 % (50-75); Platelet Count 205 X10^3/uL (150-400); Red Blood Cell Count 4.41 X10^6/uL (4.5-5.9); Red Cell Distribution Width 14.9 % (11.6-14.8); White Blood Cell Count 8.8 X10^3/uL (4.5-11.0)
[2021-04-17 06:40] LABS: Alanine Aminotransferase 53 IU/L (<50); Albumin 3.2 g/dL (3.5-5.0); Albumin Globulin Ratio 1.1 (1.0-2.8); Alkaline Phosphatase 45 U/L (38-126); Aspartate Aminotransferase 92 IU/L (17-59); BUN Creatinine Ratio 49.4 (6-22); Bilirubin Total 0.6 mg/dL (0.2-1.3); Blood Urea Nitrogen 44 mg/dL (9-20); Calcium 8.4 mg/dL (8.4-10.2); Carbon Dioxide 29 mmol/L (22-32); Chloride 106 mmol/L (98-107); Estimated Glomerular Filt Rate > 60.0 mL/min (>60); Glucose 144 mg/dL (80-110); HEMOLYSIS < 15 (0-50); Lactate Dehydrogenase 1335 U/L (313-618); Potassium 3.9 mmol/L (3.4-5.1); Sodium 141 mmol/L (137-145); Total Protein 6.2 g/dL (6.3-8.2)
[2021-04-17 06:55] LABS: C-Reactive Protein Quant 14.4 mg/dL (<1.0)
--- NOTE | 2021-04-17 08:37 | P.PN_ITS ---
Subjective Subjective Date Patient Seen: 04/17/21 Time Patient Seen: 08:30 Interval history: Pt with active covid infection presented hypoxic yesterday and did well initially on minimal O2 supplementation however his O2 sats dropped precipitously this morning and his oxygen was increased to 15L to get him stable in the low 90s. He feels pretty good as long as he isn't moving. Hungry for breakfast. Exam Vital Signs (past 8 hours): - 04/17/21 03:45 04/17/21 03:50 04/17/21 06:21 Temperature 98.0 F Pulse Rate 96 H 93 H 90 Respiratory Rate 18 24 16 Blood Pressure 155/95 H Pulse Oximetry 86 L 90 L 90 L Oxygen Delivery Method High Flow Nasal Cannula Oxygen Flow Rate 16 Narrative Exam Narrative: cheerful donovan sitting in chair with nasal cannula on Const General: cooperative, healthy appearing and comfortable HENMT Head: normal to inspection, normocephalic and atraumatic Eyes General: appearance normal, both eyes and all related structures Resp Effort & Inspection: normal respiratory effort and able to speak in complete sentences Auscultation: clear to auscultation bilaterally Cardio Rate: regular rate Rhythm: regular rhythm Heart Sounds: S1 normal and S2 normal GI Other: SNTND NBS Psych Appearance: grossly normal and well kempt Mood: congruent mood Affect: normal affect Objective Labs Result Diagrams: 04/17/21 06:14 04/17/21 06:14 Labs: Laboratory Results - last 24 hr 04/17/21 04/17/21 04/17/21 04:51 06:14 06:14 WBC 8.8 RBC 4.41 L Hgb 12.2 L Hct 37.0 L MCV 84.0 MCH 27.7 MCHC 33.0 RDW 14.9 H Plt Count 205 Neut % (Auto) 85.6 H Lymph % (Auto) 7.1 L Josephine % (Auto) 7.1 Eos % (Auto) 0.0 L Baso % (Auto) 0.2 Neut # (Auto) 7500 H Lymph # (Auto) 600 L Josephine # (Auto) 600 Eos # (Auto) 0 Baso # (Auto) 0 ABG pH 7.49 H ABG pCO2 35.7 ABG pO2 62 L ABG HCO3 27 H ABG Total CO2 28 ABG O2 Saturation 93 L ABG Base Excess 4.0 H FiO2 80 Sodium 141 Potassium 3.9 Chloride 106 Carbon Dioxide 29 BUN 44 H Creatinine 0.89 Estimated GFR > 60.0 BUN/Creatinine Ratio 49.4 H Glucose 144 H Calcium 8.4 Total Bilirubin 0.6 AST 92 H ALT 53 H Alkaline Phosphatase 45 Lactate Dehydrogenase 1335 H C-Reactive Protein 14.4 H Total Protein 6.2 L Albumin 3.2 L Globulin 3.0 Albumin/Globulin Ratio 1.1 PFSH Surgical History Status post hernia repair Status post knee surgery Social History household members: spouse Smoking Status: Never smoker second hand exposure: Yes (I was when I was growing up) alcohol intake: never substance use type: does not use Assessment & Plan Assessment & Plan narrative: #acute respiratory failure with hypoxia #active COVID-19 infection Oxygen requirements increasing but appear stable this morning Continue Decadron 6 mg daily and Remdesivir 100 mg daily for 10 days or will discontinue once oxygen requirements subside. Supplemental O2 and albuterol nebulizers as needed - we are switching to vapotherm this morning which should be more comfortable Prone with wedges as needed - tylenol for fever as needed #transaminitis, present on admission elevated LFTs on admission probably represents low grade liver injury d/t covid improving this morning continue to trend #Hypertension well controlled Continue home losartan and hydrochlorothiazide prn hydralazine #Normocytic anemia, chronic, present on admission Mild, continue to trend. #GERD Continue with PPI Code status is full code We discussed intubation and he does not desire for hypoxia DVT ppx: lovenox diet: heart healthy Quality VTE Deep Vein Thrombosis/Pulmonary Embolism Present on Admission: No
[2021-04-17] MEDS: guaiFENesin ER 600 MG TAB PO ×2 (10:05→20:34)
[2021-04-17] MEDS: DEXAMETHASONE 10 MG/ML VIAL 6 MG IV (10:08)
[2021-04-17] MEDS: BARICITINIB 2 MG TABLET 4 MG PO (10:09)
[2021-04-17] MEDS: hydroCHLOROthiazide 25 MG TABLET 12.5 MG PO (10:09)
[2021-04-17] MEDS: ENOXAPARIN 40 MG/0.4 ML SYRINGE SUBCUT (10:10)
[2021-04-17] MEDS: SODIUM CHLORIDE 0.9% FLUSH 10 ML IV ×3 (10:30→20:56)
[2021-04-17] MEDS: LOSARTAN 50 MG TABLET PO (11:04)
[2021-04-17] MEDS: BENZONATATE 100 MG CAPSULE 200 MG PO ×2 (11:30→20:34)
--- NOTE | 2021-04-17 12:40 | CM.DPNOTE ---
Pt moved to 226 for increased hypoxia and heated high flow O2. 15L on high flow NC WITH sPO2 88% increased WOB with hypoxia. Rt into switch over and 50L 90% Fio2 Pt rec'd Ativan to assist in Proning. With assist for positioning, Pt is able to keep O2 sats up at 96+. By noon, Pt has heated high flow reduced to 50L and 80% Fi02. Sitting up for meal. Reports pain from repeated coughing. Call light in reach.
--- NOTE | 2021-04-17 14:44 | CM.DPC ---
DCP Cont: Per MD, pt was on NC oxygen but now requiring heated high flow oxygen and moved rooms due to his oxygen needs. Pt with ongoing cough and discomfort from his constant coughing but able to prone some in his room. Per MD, pt likely here at least a few days as he is not improving but has worsened. PT not appropriate at this time due to medical needs and sats. Plan: SW to follow closely for pt progress and possible need for PT eval as pt not progressing at this time and requiring heated high flow now. MILA Burrell
--- NOTE | 2021-04-17 17:14 | DIET.PN ---
Dietary Progress Note Kitchen to send ONS Ensure Max c lunches to support high PRO needs of this covid+ pt. Renal labs WNL.
[2021-04-17 20:21] LABS: Fractionated Inspired Oxygen 85; HCO3 ABG 25 mmol/L (22-26); Oxygen Saturation ABG 94 % (95-100); PCO2 ABG 31.3 mmHg (35-45); PO2 ABG 63 mmHg (80-100); TCO2 ABG 26 mmol/L (21-31); pH ABG 7.51 (7.35-7.45)
[2021-04-17] MEDS: REMDESIVIR 100 MG in SODIUM CHLORIDE 0.9% 230 ML 250 ML IV (21:54)
[2021-04-17] MEDS: SODIUM CHLORIDE 0.9% 250 ML 21 ML IV (21:56)
--- NOTE | 2021-04-17 21:58 | PC.NURSE ---
2029 Pt desating on60L/85%, ABG done and result called to Dr. Moreno. Pt placed on bipap 21/04 rate 12 55% fiO2. Sats improved to 95%. Ativan 0.5mg IVP given for anxiety. 2199, pt continuing to have some difficulty adjusting to BiPaP. Will continue to monitor, Sats >90%.
[2021-04-18] VITALS (24 sets, daily range): BP systolic 119–166; BP diastolic 58–94; PULSE 67–104; RESP 14–42; TEMP 35.7–37.1; O2SAT 77–99
[2021-04-18] MEDS: ALBUTEROL 2.5 MG/3 ML NEB (ADULT) INH ×4 (06:03→20:16)
[2021-04-18] MEDS: LORazepam 2 MG/ML INJ 0.5 MG IV ×2 (07:04→10:33)
[2021-04-18] MEDS: BENZONATATE 100 MG CAPSULE 200 MG PO ×2 (07:04→20:59)
[2021-04-18] MEDS: guaiFENesin ER 600 MG TAB PO ×2 (07:04→20:59)
--- NOTE | 2021-04-18 08:27 | PC.NURSE ---
Addendum entered by Kimberly Troncoso R.N. 04/18/21 15:22: Dr Key updated on patient status before leaving ICU this am. No hopsitalist consult, no ABG or further intervention at this time. PIV dressing changed and continue to monitor for patency. We will readdress this afternoon depending on patient status today. Addendum entered by Kimberly Troncoso R.N. 04/18/21 14:53: Pt declines condom cath and at this time is not allowing monzon placement. Education provided for benefits of not having patient use all o2 reserves to stand and use urinal. Pt will use urinal only in bed now, otherwise we will have to do monzon to prevent hypoxia. Verbal order obtained. Pt is not tolerating proning but has significant improvement to Spo2 with side laying. 1.5 hrs of prone time and 3.5 hr of side laying. Currently on 60L and 85%Fio2 Addendum entered by Kimberly Troncoso R.N. 04/18/21 08:57: 0850-Dr Key at bedside to see Pt, discussion about POC and Pt verbalizing Full code/full intubation if needed. Will address Monzon or condom cath for Pt to save reserves for care. Pt continues to prone as able, over 50% of NOC shift. Daily lab orders obtained, will get new PIV access as both current sites are about to need replacement. Original Note: Assumed care of Pt @ 0300. SOB with any activity and no reserves at all. Currently 60L and 90% Fio2 with prolonged recovery ~15 min when Pt does desat. Clearly Pt becomes quite anxious during desatting and requires nursing staff to assist in keeping calm. Ativan given, RR 40, Spo2 variable from 99-78% on current settings. RT assessed Pt and discussion started again about POC if Pt continues to worsen and or need intubation.Pt reports he would like intubation if this continues, and understand risks vs benefit. Pt is currently resting after Ativan dosing. Spo2 97% without movement. Pt has been cooperative with proning. About hald of NOC shift. Urinal to voiid. Call into Dr Hassan for assessment of Patient, Update Dr Key is covering for patient today Xiao from [facility] took message and will catch Md for urgent message. .
--- NOTE | 2021-04-18 09:03 | P.PN_ITS ---
Subjective Subjective Interval history: Sats dropped over night and he ended up on BIPAP for a couple hours but could not tolerate. This morning he is sitting up eating breakfast on 16L. Feels wiped out with any effort. Exam Vital Signs (past 8 hours): - 04/18/21 02:03 04/18/21 04:00 04/18/21 04:50 Temperature 98.6 F Pulse Rate 67 68 91 H Respiratory Rate 18 18 18 Blood Pressure 135/70 Pulse Oximetry 98 98 94 04/18/21 06:10 04/18/21 06:17 04/18/21 06:20 Temperature Pulse Rate 84 84 Respiratory Rate 20 20 Blood Pressure 135/70 Pulse Oximetry 99 97 93 04/18/21 08:00 Temperature 98.7 F Pulse Rate 83 Respiratory Rate 16 Blood Pressure 125/68 Pulse Oximetry 97 Fraction of Inspired Oxygen 93 Oxygen Delivery Method Heated High Flow Oxygen Flow Rate 60 Narrative Exam Narrative: sitting up eating breakfast with vapotherm on HENMT Head: normal to inspection, normocephalic and atraumatic Resp Effort & Inspection: able to speak in complete sentences and abnormal respiratory pattern Auscultation: clear to auscultation bilaterally Percussion: percussion normal Cardio Rate: tachycardic Rhythm: regular rhythm Heart Sounds: S1 normal and S2 normal GI Palpation: soft Auscultation: normal bowel sounds Skin General: no rashes or lesions noted Neuro General: patient alert, patient awake, patient oriented x3 and CN's II-XI intact bilaterally Extrem General: normal to inspection and full ROM Psych Appearance: grossly normal Mental Status: mental status grossly normal Speech and Movement: speech and movement normal Mood: congruent mood Affect: normal affect Objective Labs Result Diagrams: 04/17/21 06:14 04/17/21 06:14 Labs: Laboratory Results - last 24 hr 04/17/21 04/17/21 09:50 20:03 ABG pH 7.51 H ABG pCO2 31.3 L ABG pO2 63 L ABG HCO3 25 ABG Total CO2 26 ABG O2 Saturation 94 L ABG Base Excess 2.0 FiO2 85 Nasal Screen MRSA (PCR) Negative for mrsa [facility] Surgical History Status post hernia repair Status post knee surgery Social History household members: spouse Smoking Status: Never smoker second hand exposure: Yes (I was when I was growing up) alcohol intake: never substance use type: does not use Assessment & Plan Assessment & Plan narrative: #acute respiratory failure with hypoxia #active COVID-19 infection Oxygen requirements increasing but pt appears stable this morning He is periodically desatting down into 70s/80s but can get to 90 reportedly if he holds still. Will try a larger BiPAP mask see if he can tolerate that. Might need a shave. Spend as much time prone as possible. Continue Decadron 6 mg daily and Remdesivir 100 mg daily for 10 days or will discontinue once oxygen requirements subside. Supplemental O2 and albuterol nebulizers as needed Prone with wedges as needed - tylenol for fever as needed #transaminitis, present on admission elevated LFTs on admission probably represents low grade liver injury d/t covid improving continue to trend #Hypertension well controlled Continue home losartan and hydrochlorothiazide prn hydralazine #Normocytic anemia, chronic, present on admission Mild, continue to trend. #GERD Continue with PPI Code status is full code We discussed intubation and he does not desire for hypoxia MDM: Becky DVT ppx: lovenox diet: heart healthy Quality VTE Deep Vein Thrombosis/Pulmonary Embolism Present on Admission: No
[2021-04-18] MEDS: LOSARTAN 50 MG TABLET PO (09:25)
[2021-04-18] MEDS: hydroCHLOROthiazide 25 MG TABLET 12.5 MG PO (09:25)
[2021-04-18] MEDS: BARICITINIB 2 MG TABLET 4 MG PO (09:25)
[2021-04-18] MEDS: DEXAMETHASONE 10 MG/ML VIAL 6 MG IV (09:27)
[2021-04-18] MEDS: ENOXAPARIN 40 MG/0.4 ML SYRINGE SUBCUT (09:27)
[2021-04-18] MEDS: SODIUM CHLORIDE 0.9% FLUSH 10 ML IV ×2 (09:28→21:00)
--- NOTE | 2021-04-18 11:29 | PC.NURSE ---
Assisting with patient's care, patient wanted to shower today, but unable to do so for safety. Provided sponge bath and Educated patient again on ways of conserving energy, and proning up to 18 hours per 24 hour period. PIV to RFA and RAC flushing well and intact. Labs drawn (required repeat call to lab) and will follow. Patient denies pain at this time, assisted into bed to attempt proning and side laying. Call light and urinal within reach.
[2021-04-18 11:59] LABS: Add Manual Diff / Slide Review NO; Basophils Absolute Auto 0 /uL (0-100); Basophils Percent Auto 0.1 % (0-2); Eosinophils Absolute Auto 0 /uL (0-450); Hematocrit 39.7 % (41-53); Hemoglobin 12.9 g/dL (13.5-17.5); Lymphocytes Absolute Auto 800 /uL (1100-4500); Mean Corpuscular HGB Conc 32.4 % (30-36); Mean Corpuscular Hemoglobin 27.4 PG (26-34); Mean Corpuscular Volume 84.6 fL (80-100); Monocytes Absolute Auto 700 /uL (0-900); Monocytes Percent Auto 5.4 % (3-14); Neutrophils Absolute Auto 12300 /uL (1500-7000); Neutrophils Percent Auto 88.5 % (50-75); Platelet Count 308 X10^3/uL (150-400); Red Blood Cell Count 4.69 X10^6/uL (4.5-5.9); Red Cell Distribution Width 14.6 % (11.6-14.8); White Blood Cell Count 13.9 X10^3/uL (4.5-11.0)
[2021-04-18 12:05] LABS: Alanine Aminotransferase 56 IU/L (<50); Albumin 3.5 g/dL (3.5-5.0); Albumin Globulin Ratio 1.1 (1.0-2.8); Alkaline Phosphatase 51 U/L (38-126); Aspartate Aminotransferase 126 IU/L (17-59); BUN Creatinine Ratio 53.1 (6-22); Blood Urea Nitrogen 43 mg/dL (9-20); Calcium 8.9 mg/dL (8.4-10.2); Carbon Dioxide 23 mmol/L (22-32); Chloride 108 mmol/L (98-107); Estimated Glomerular Filt Rate > 60.0 mL/min (>60); Globulin 3.2 g/dL (1.7-4.1); Glucose 150 mg/dL (80-110); HEMOLYSIS 19 (0-50); Potassium 3.9 mmol/L (3.4-5.1); Sodium 141 mmol/L (137-145); Total Protein 6.7 g/dL (6.3-8.2)
[2021-04-18] MEDS: DOCUSATE 100 MG CAPSULE PO (20:59)
[2021-04-18] MEDS: ZOLPIDEM 5 MG TABLET 10 MG PO (21:00)
[2021-04-18] MEDS: REMDESIVIR 100 MG in SODIUM CHLORIDE 0.9% 230 ML 250 ML IV (21:00)
--- NOTE | 2021-04-18 22:12 | PC.NURSE ---
End of Shift Note: Pt alert and cooperative with care this shift. Declined monzon placement, in return promised to prone confinuously during the night. SPO2 98% while proned on 60l/85% HHFNC. Requested sleep aid, called and ambien 10mg given for sleep.
[2021-04-19] VITALS (22 sets, daily range): BP systolic 100–164; BP diastolic 59–94; PULSE 75–99; RESP 14–32; TEMP 36.5–37.5; O2SAT 90–99
--- NOTE | 2021-04-19 00:58 | RT ---
Called for drop in SPO2, patient woke up confused and jumped out of bed had a nightmare. SPO2 running 80% despite increasing FIO2 to 100% by RN. Inspection of circuit revealed patient had disconnected circuit completly from heater and high flow so was not getting any flow. Once reconnected and given a few minutes of 100% FIO2 SPO2 returned to low 90's. Patient continuing to prone after incident. Patient aware of what happened and reassured everything was back in working order.
[2021-04-19] MEDS: LOSARTAN 50 MG TABLET PO (07:55)
[2021-04-19] MEDS: BARICITINIB 2 MG TABLET 4 MG PO (07:55)
[2021-04-19] MEDS: BENZONATATE 100 MG CAPSULE 200 MG PO ×2 (07:55→21:27)
[2021-04-19] MEDS: DEXAMETHASONE 10 MG/ML VIAL 6 MG IV (07:57)
[2021-04-19] MEDS: guaiFENesin ER 600 MG TAB PO ×2 (07:57→21:28)
[2021-04-19] MEDS: ENOXAPARIN 40 MG/0.4 ML SYRINGE SUBCUT (08:01)
[2021-04-19] MEDS: hydroCHLOROthiazide 25 MG TABLET 12.5 MG PO (08:01)
[2021-04-19] MEDS: HYDROCODONE/ACET 5/325 TABLET 1 TAB PO ×2 (08:53→21:27)
--- NOTE | 2021-04-19 09:01 | PM.PN.1 ---
Subjective Subjective Date Patient Seen: 04/19/21 Time Patient Seen: 08:45 Interval history: doing ok on high flow 60L now at 50L, sats in 80s awake Exam Vital Signs (past 8 hours): - 04/19/21 03:30 04/19/21 04:58 04/19/21 06:06 Temperature 97.7 F Pulse Rate 92 H 94 H 88 Respiratory Rate 24 14 24 Blood Pressure 150/94 H 150/94 H Pulse Oximetry 99 95 97 04/19/21 08:00 04/19/21 08:14 Temperature 97.7 F Pulse Rate 99 H 99 H Respiratory Rate 21 24 Blood Pressure 158/85 H 158/85 H Pulse Oximetry 95 93 Fraction of Inspired Oxygen 0.85 Oxygen Delivery Method Heated High Flow Oxygen Flow Rate 60 Narrative Exam Narrative: exhausted donovan laying in bed Const General: cooperative, comfortable, well developed and ill appearing [facility] Head: normocephalic and atraumatic Eyes General: appearance normal, both eyes and all related structures Resp Auscultation: diminished lung sounds (but clear bilaterally) Cardio Rate: tachycardic Rhythm: regular rhythm Heart Sounds: S1 normal and S2 normal GI Palpation: soft Auscultation: normal bowel sounds Other: monozn in place Skin General: no rashes or lesions noted Neuro General: patient alert, patient awake and patient oriented x3 Extrem General: normal to inspection and full ROM Psych Appearance: grossly normal Mental Status: mental status grossly normal Speech and Movement: speech and movement normal Mood: congruent mood Affect: normal affect Objective Labs Result Diagrams: 04/18/21 10:55 04/18/21 10:55 Labs: Laboratory Results - last 24 hr 04/18/21 04/18/21 10:55 10:55 WBC 13.9 H D RBC 4.69 Hgb 12.9 L Hct 39.7 L MCV 84.6 MCH 27.4 MCHC 32.4 RDW 14.6 Plt Count 308 Neut % (Auto) 88.5 H Lymph % (Auto) 6.0 L [place] % (Auto) 5.4 Eos % (Auto) 0.0 L Baso % (Auto) 0.1 Neut # (Auto) 76110 H Lymph # (Auto) 800 L [place] # (Auto) 700 Eos # (Auto) 0 Baso # (Auto) 0 Sodium 141 Potassium 3.9 Chloride 108 H Carbon Dioxide 23 BUN 43 H Creatinine 0.81 Estimated GFR > 60.0 BUN/Creatinine Ratio 53.1 H Glucose 150 H Calcium 8.9 Total Bilirubin 1.0 AST 126 H ALT 56 H Alkaline Phosphatase 51 Total Protein 6.7 Albumin 3.5 Globulin 3.2 Albumin/Globulin Ratio 1.1 PFSH Surgical History Status post hernia repair Status post knee surgery Social History household members: spouse Smoking Status: Never smoker second hand exposure: Yes (I was when I was growing up) alcohol intake: never substance use type: does not use Assessment & Plan Assessment & Plan narrative: #acute respiratory failure with hypoxia #COVID-19 pneumonia He is periodically desatting down into 70s/80s but can get to 99 asleep. Can try a larger BiPAP mask see if he can tolerate that if necessary. Spend as much time prone as possible. Continue Decadron 6 mg daily and Remdesivir 100 mg daily for 10 days or will discontinue once oxygen requirements subside. Supplemental O2 and albuterol nebulizers as needed. monzon placed today. Urine a bit dark, hanging 1L NS. may need PICC. Prone with wedges as needed - tylenol for fever as needed #transaminitis, present on admission elevated LFTs on admission probably represents low grade liver injury d/t covid still high continue to trend #Hypertension well controlled Continue home losartan and hydrochlorothiazide prn hydralazine #Normocytic anemia, chronic, present on admission Mild, continue to trend. #GERD Continue with PPI Code status is full code We discussed intubation and he does not desire for hypoxia MDM: Becky DVT ppx: lovenox diet: heart healthy COVID-19 COVID-19 status: Positive Quality VTE Deep Vein Thrombosis/Pulmonary Embolism Present on Admission: No
[2021-04-19 12:38] LABS: Add Manual Diff / Slide Review NO; Basophils Absolute Auto 0 /uL (0-100); Basophils Percent Auto 0.1 % (0-2); Eosinophils Absolute Auto 0 /uL (0-450); Hematocrit 38.2 % (41-53); Hemoglobin 12.3 g/dL (13.5-17.5); Lymphocytes Absolute Auto 600 /uL (1100-4500); Lymphocytes Percent Auto 4.6 % (25-40); Mean Corpuscular HGB Conc 32.1 % (30-36); Mean Corpuscular Hemoglobin 27.1 PG (26-34); Mean Corpuscular Volume 84.3 fL (80-100); Monocytes Absolute Auto 600 /uL (0-900); Monocytes Percent Auto 5.1 % (3-14); Neutrophils Absolute Auto 10800 /uL (1500-7000); Neutrophils Percent Auto 90.2 % (50-75); Platelet Count 270 X10^3/uL (150-400); Red Blood Cell Count 4.53 X10^6/uL (4.5-5.9); Red Cell Distribution Width 14.7 % (11.6-14.8)
[2021-04-19 12:49] LABS: Alanine Aminotransferase 88 IU/L (<50); Albumin 3.1 g/dL (3.5-5.0); Alkaline Phosphatase 54 U/L (38-126); Aspartate Aminotransferase 140 IU/L (17-59); BUN Creatinine Ratio 45.3 (6-22); Bilirubin Total 1.6 mg/dL (0.2-1.3); Blood Urea Nitrogen 34 mg/dL (9-20); Calcium 8.4 mg/dL (8.4-10.2); Carbon Dioxide 27 mmol/L (22-32); Chloride 106 mmol/L (98-107); Estimated Glomerular Filt Rate > 60.0 mL/min (>60); Globulin 3.1 g/dL (1.7-4.1); Glucose 115 mg/dL (80-110); HEMOLYSIS < 15 (0-50); Potassium 3.9 mmol/L (3.4-5.1); Sodium 139 mmol/L (137-145); Total Protein 6.2 g/dL (6.3-8.2)
[2021-04-19] MEDS: SODIUM CHLORIDE 0.9% FLUSH 10 ML IV ×2 (13:59→21:28)
--- NOTE | 2021-04-19 14:19 | PC.NURSE ---
am shift Pt is requiring 60L and 85% fio2 at start of shift. Substantial desat with using urinal at start of shift. Vora placed to prevent further desats, reassured Pt, increased anxiety noted this shift. Proning after ativan given. C/o shoulder pain. Cando x1. Prone time this shift >2 hours, however side laying 3-4 hours. Cooperative with POC, and working to reduce Fio2 with RT this shift. end of shift Pt was at 72Fio2 50L
--- NOTE | 2021-04-19 15:44 | DI.RAD.S_ITS ---
PROCEDURE: XR CHEST FOR PICC 1V INDICATIONS: picc placment COMPARISON: [facility], CR, XR CHEST 1V, 04/16/2021, 0:24. FINDINGS: Heart size is enlarged. There is underlying vascular congestion and patchy bilateral pulmonary infiltrates noted. Right-sided PICC line tip in the distal subclavian vein. No pneumothorax. IMPRESSION: Right-sided PICC line tip in the distal subclavian vein. Repositioning recommended. Worsening patchy bilateral pulmonary infiltrates Approved by: Brandan Devlin M.D. on 04/19/2021 at 18:09
--- NOTE | 2021-04-19 16:18 | CM.DPC ---
DCP: continued: Dr. Key was here late this afternoon to update team on pt. He says he is continuing to need the heated high flow oxygen. Will continue with hospital level treatment for Covid + pneumonia. He is not yet ready for PT to start. DCP team will continue to follow.
[2021-04-19] MEDS: SODIUM CHLORIDE 0.9% 500 ML 1000 ML IV (17:35)
[2021-04-19] MEDS: REMDESIVIR 100 MG in SODIUM CHLORIDE 0.9% 230 ML 250 ML IV (21:29)
[2021-04-19] MEDS: LORazepam 2 MG/ML INJ 0.5 MG IV (21:29)
[2021-04-20] VITALS (35 sets, daily range): BP systolic 125–176; BP diastolic 59–85; PULSE 68–96; RESP 14–28; TEMP 36.1–37.3; O2SAT 84–100
[2021-04-20] MEDS: HYDROCODONE/ACET 5/325 TABLET 1 TAB PO ×4 (04:48→20:45)
[2021-04-20] MEDS: SODIUM CHLORIDE 0.9% FLUSH 10 ML IV ×3 (04:49→22:37)
[2021-04-20] MEDS: LORazepam 2 MG/ML INJ 0.5 MG IV ×2 (04:49→08:26)
[2021-04-20 05:07] LABS: Hematocrit 39.6 % (41-53); Hemoglobin 12.8 g/dL (13.5-17.5); Mean Corpuscular HGB Conc 32.2 % (30-36); Mean Corpuscular Hemoglobin 27.4 PG (26-34); Mean Corpuscular Volume 84.9 fL (80-100); Platelet Count 246 X10^3/uL (150-400); Red Blood Cell Count 4.67 X10^6/uL (4.5-5.9); Red Cell Distribution Width 14.2 % (11.6-14.8)
[2021-04-20 05:11] LABS: Add Manual Diff / Slide Review YES
[2021-04-20 05:13] LABS: Alanine Aminotransferase 75 IU/L (<50); Alkaline Phosphatase 48 U/L (38-126); Aspartate Aminotransferase 81 IU/L (17-59); Bilirubin Total 1.3 mg/dL (0.2-1.3); Blood Urea Nitrogen 38 mg/dL (9-20); Calcium 8.4 mg/dL (8.4-10.2); Carbon Dioxide 29 mmol/L (22-32); Chloride 106 mmol/L (98-107); Estimated Glomerular Filt Rate > 60.0 mL/min (>60); Glucose 98 mg/dL (80-110); HEMOLYSIS < 15 (0-50); Potassium 4.3 mmol/L (3.4-5.1); Sodium 139 mmol/L (137-145)
[2021-04-20 06:44] LABS: Neutrophils Absolute Manual 10660 /uL (3000-5900); Total Cells Counted 100
[2021-04-20 06:45] LABS: Plasma Cells 1; RBC Morphology Normal Morphology
[2021-04-20] MEDS: ALBUTEROL 2.5 MG/3 ML NEB (ADULT) INH (08:25)
[2021-04-20] MEDS: DEXAMETHASONE 10 MG/ML VIAL 6 MG IV (08:26)
[2021-04-20] MEDS: guaiFENesin ER 600 MG TAB PO ×2 (08:26→22:36)
[2021-04-20] MEDS: LOSARTAN 50 MG TABLET PO (08:27)
[2021-04-20] MEDS: DOCUSATE 100 MG CAPSULE PO (08:27)
[2021-04-20] MEDS: BENZONATATE 100 MG CAPSULE 200 MG PO ×2 (08:27→20:45)
[2021-04-20] MEDS: hydroCHLOROthiazide 25 MG TABLET 12.5 MG PO (08:27)
--- NOTE | 2021-04-20 08:28 | P.PN_ITS ---
Subjective Subjective Date Patient Seen: 04/20/21 Time Patient Seen: 08:28 Interval history: Patient did well overnight. Still requiring high-flow oxygen. Urinary retention Vora catheter has been placed. Has not had a bowel movement for few days. Eating well. Still uncomfortable with coughing. Anxious with his breathing. No pain. Taking orals okay. Exam Vital Signs (past 8 hours): - 04/20/21 00:33 04/20/21 03:20 04/20/21 04:00 Temperature 98.3 F Pulse Rate 79 81 76 Respiratory Rate 21 19 18 Blood Pressure 176/76 H 152/67 H Pulse Oximetry 97 96 90 L Fraction of Inspired Oxygen 40 Oxygen Delivery Method Heated High Flow Oxygen Flow Rate 50 Narrative Exam Narrative: Gen.: Alert good historian HEENT: Pupils equal round and reactive or mucosa is moist Cardio: S1-S2 regular rate and rhythm Respiratory: Increased work of breathing with intermittent coughing. Lungs are clear Abdomen: Soft obese nontender Extremities: Full range of motion Objective Labs Result Diagrams: 04/20/21 04:50 04/20/21 04:50 Labs: Laboratory Results - last 24 hr 04/19/21 04/19/21 04/20/21 12:20 12:20 04:50 WBC 12.0 H 13.0 H RBC 4.53 4.67 Hgb 12.3 L 12.8 L Hct 38.2 L 39.6 L MCV 84.3 84.9 MCH 27.1 27.4 MCHC 32.1 32.2 RDW 14.7 14.2 Plt Count 270 246 Neut % (Auto) 90.2 H Not Reportable Lymph % (Auto) 4.6 L Not Reportable [place] % (Auto) 5.1 Not Reportable Eos % (Auto) 0.0 L Not Reportable Baso % (Auto) 0.1 Not Reportable Neut # (Auto) 86175 H Lymph # (Auto) 600 L Not Reportable [place] # (Auto) 600 Not Reportable Eos # (Auto) 0 Baso # (Auto) 0 Not Reportable Total Counted 100 Seg Neutrophils % 81.0 H Band Neutrophils % 1.0 L Lymphocytes % (Manual) 12.0 L Monocytes % (Manual) 4.0 Eosinophils % (Manual) 1.0 L Neutrophils # (Manual) 39828 H Plasma Cells 1 RBC Morphology Normal morphology Sodium 139 Potassium 3.9 Chloride 106 Carbon Dioxide 27 BUN 34 H Creatinine 0.75 Estimated GFR > 60.0 BUN/Creatinine Ratio 45.3 H Glucose 115 H Calcium 8.4 Total Bilirubin 1.6 H AST 140 H ALT 88 H Alkaline Phosphatase 54 Total Protein 6.2 L Albumin 3.1 L Globulin 3.1 Albumin/Globulin Ratio 1.0 04/20/21 04:50 WBC RBC Hgb Hct MCV MCH MCHC RDW Plt Count Neut % (Auto) Lymph % (Auto) [place] % (Auto) Eos % (Auto) Baso % (Auto) Neut # (Auto) Lymph # (Auto) [place] # (Auto) Eos # (Auto) Baso # (Auto) Total Counted Seg Neutrophils % Band Neutrophils % Lymphocytes % (Manual) Monocytes % (Manual) Eosinophils % (Manual) Neutrophils # (Manual) Plasma Cells RBC Morphology Sodium 139 Potassium 4.3 Chloride 106 Carbon Dioxide 29 BUN 38 H Creatinine 0.76 Estimated GFR > 60.0 BUN/Creatinine Ratio 50.0 H Glucose 98 Calcium 8.4 Total Bilirubin 1.3 AST 81 H ALT 75 H Alkaline Phosphatase 48 Total Protein 6.0 L Albumin 3.0 L Globulin 3.0 Albumin/Globulin Ratio 1.0 [facility], [facility] Surgical History Status post hernia repair Status post knee surgery Social History household members: spouse Smoking Status: Never smoker second hand exposure: Yes (I was when I was growing up) alcohol intake: never substance use type: does not use Assessment & Plan Assessment & Plan narrative: COVID pneumonia continue with remdesivir and Decadron. On heated high-flow oxygen. Chest x-ray shows worsening opacification. Patient does not want to be intubated. Intermittent increasing oxygen demand. Day 9. Since diagnosis. Day 4. Of hospitalization. Patient on Lovenox. White blood cell hemoglobin hematocrit stable. Nebulizers plus minus whether there working. Some nasal congestion. Will consider Afrin and or Flonase. Due to high flow oxygen. Acute respiratory failure due to COVID pneumonia. Patient on high-flow in the ICU. ABG will be redrawn this morning x-ray will we be revision lysed. Patient does not want to be intubated. Acute Urinary obstruction patient had a Vora catheter placed. Doing much better. Will start Flomax help facilitate urine flow. Patient was some significant constipation. May impact his urinary flow as well. Constipation. Stool regiment started with MiraLax suppositories and Colace. Essential hypertension losartan and hydrochlorothiazide Transaminitis with elevation of LFTs. Due to acute illness with COVID medi cations except. Will continue to monitor. DVT prophylaxis with Lovenox full code Quality VTE Deep Vein Thrombosis/Pulmonary Embolism Present on Admission: No
[2021-04-20] MEDS: BARICITINIB 2 MG TABLET 4 MG PO (08:30)
[2021-04-20 10:38] LABS: Fractionated Inspired Oxygen 65; HCO3 ABG 26 mmol/L (22-26); Oxygen Saturation ABG 93 % (95-100); PCO2 ABG 34.3 mmHg (35-45); TCO2 ABG 27 mmol/L (21-31); pH ABG 7.49 (7.35-7.45)
[2021-04-20 10:39] LABS: PO2 ABG 59 mmHg (80-100)
--- NOTE | 2021-04-20 11:43 | DI.US.S_ITS ---
PROCEDURE: US PERIPH VENOUS UP EXTREM RT INDICATIONS: DVT confirmation TECHNIQUE: Real-time imaging, as well as color and pulse Doppler interrogation, was performed of the right upper extremity deep veins from the inferior neck to the antecubital fossa. COMPARISON: None. FINDINGS: The internal jugular vein, visualized portions of the subclavian vein, axillary, and brachial veins are free of intraluminal thrombus. Where physically possible, the veins are normally compressible. Color and pulse Doppler demonstrate normal intraluminal flow, with expected phasicity and pulsatility. Additional scanning of the cephalic and basilic veins of the superficial system demonstrate normal compressibility, without thrombus. IMPRESSION: No evidence of deep venous thrombosis, right upper extremity and jugular vein Approved by: Brandan Devlin M.D. on 04/20/2021 at 13:59
[2021-04-20] MEDS: polyethylene glycoL 3350 17 GM POWD.PACK PO (12:46)
[2021-04-20] MEDS: LORazepam 0.5 MG TABLET PO (12:47)
[2021-04-20] MEDS: ENOXAPARIN 40 MG/0.4 ML SYRINGE SUBCUT (12:55)
--- NOTE | 2021-04-20 13:47 | PC.NURSE ---
PT DOING WELL AND COOPERATIVE ON PRESENT SETTINGS ON HEATED HIGH FLOW NASAL CANNULA (60L/75%)- COOPERATIVE ABLE INITIALLY THIS AM PT DESAT DOWN TO LOW-MID 80'S - ENCOURAGED PRONING AND PT HAS BEEN COMPLIANT- IN NEED OF BM - GIVEN MIRALAX/DOCUSATE , APPETITE FAIR , CATHETER DRAINING- DOUBLE LUMEN PICC LINE THAT WAS PLACED YESTERDAYS DATE AND NON-FUNCTIONAL WAS REMOVED THIS AM AND NEW PICC LINE PLACED IN RIGHT AXILLARY VEIN- INITIALLY THOUGHT ( BY PRECISION EMPLOYEE) TO BE A THROMBUS AT SITE OF FIRST PLACED PICC LINE- CLARIFIED BY REPAIRER RECREATIONAL VEHICLE = NO CONFIRMED THROMBUS- WILL CONTINUE TO RECEIVE STANDARD DOSE LOVENOX -PER DR SHERMAN
[2021-04-20] MEDS: MELATONIN 3 MG TABLET 6 MG PO (20:45)
[2021-04-20] MEDS: REMDESIVIR 100 MG in SODIUM CHLORIDE 0.9% 230 ML 250 ML IV (22:21)
[2021-04-21] VITALS (27 sets, daily range): BP systolic 108–134; BP diastolic 57–72; PULSE 61–95; RESP 15–21; TEMP 36.1–36.6; O2SAT 88–96
[2021-04-21 05:09] LABS: Hematocrit 37.1 % (41-53); Hemoglobin 12.1 g/dL (13.5-17.5); Mean Corpuscular HGB Conc 32.5 % (30-36); Mean Corpuscular Hemoglobin 27.4 PG (26-34); Mean Corpuscular Volume 84.4 fL (80-100); Platelet Count 260 X10^3/uL (150-400); Red Cell Distribution Width 14.1 % (11.6-14.8); White Blood Cell Count 12.1 X10^3/uL (4.5-11.0)
[2021-04-21 05:12] LABS: Add Manual Diff / Slide Review YES
[2021-04-21 06:39] LABS: Neutrophils Absolute Manual 9559 /uL (3000-5900); RBC Morphology Normal Morphology; Total Cells Counted 100
[2021-04-21] MEDS: BARICITINIB 2 MG TABLET 4 MG PO (08:57)
[2021-04-21] MEDS: DOCUSATE 100 MG CAPSULE PO (08:58)
[2021-04-21] MEDS: HYDROCODONE/ACET 5/325 TABLET 1 TAB PO ×3 (08:58→19:43)
[2021-04-21] MEDS: guaiFENesin ER 600 MG TAB PO ×2 (08:58→20:08)
[2021-04-21] MEDS: ENOXAPARIN 40 MG/0.4 ML SYRINGE SUBCUT (08:58)
[2021-04-21] MEDS: LORazepam 0.5 MG TABLET PO ×2 (08:59→13:40)
[2021-04-21] MEDS: polyethylene glycoL 3350 17 GM POWD.PACK PO (08:59)
[2021-04-21] MEDS: BENZONATATE 100 MG CAPSULE 200 MG PO ×3 (08:59→20:08)
[2021-04-21] MEDS: SODIUM CHLORIDE 0.9% FLUSH 10 ML IV ×2 (08:59→20:08)
[2021-04-21] MEDS: hydroCHLOROthiazide 25 MG TABLET 12.5 MG PO (09:00)
[2021-04-21] MEDS: LOSARTAN 50 MG TABLET PO (09:00)
[2021-04-21] MEDS: DEXAMETHASONE 10 MG/ML VIAL 6 MG IV (09:00)
[2021-04-21] MEDS: BISACODYL 10 MG SUPP PR (09:14)
--- NOTE | 2021-04-21 10:51 | P.PN_ITS ---
Subjective Subjective Date Patient Seen: 04/21/21 Time Patient Seen: 10:51 Interval history: Laying prone in bed today. Had a bowel movement. Breathing stable. Sometimes better sometimes worse. Still on heated high-flow. Sometimes 40 sometimes 60. ABG done yesterday. Chest x-ray shows mild worsening of infiltrates. Eating well. Few more PVCs on telemetry monitoring blood pressure stable. Exam Vital Signs (past 8 hours): - 04/21/21 03:00 04/21/21 03:20 04/21/21 03:43 Temperature 97.9 F Pulse Rate 82 74 Respiratory Rate 19 18 18 Blood Pressure 134/72 Pulse Oximetry 88 L 89 L 92 04/21/21 04:00 04/21/21 05:00 04/21/21 06:00 Temperature Pulse Rate 69 72 62 Respiratory Rate 20 18 18 Blood Pressure Pulse Oximetry 93 93 96 04/21/21 06:15 04/21/21 06:51 04/21/21 07:00 Temperature Pulse Rate 76 79 75 Respiratory Rate 17 18 16 Blood Pressure 122/70 Pulse Oximetry 94 93 93 04/21/21 08:00 04/21/21 09:30 Temperature 97.5 F L Pulse Rate 82 Respiratory Rate 16 16 Blood Pressure 118/64 Pulse Oximetry 88 L 90 L Fraction of Inspired Oxygen 0.46 Oxygen Delivery Method Heated High Flow Oxygen Flow Rate 50 Narrative Exam Narrative: Gen.: Alert mild distress due to increased work of breathing HEENT: Pupils equal round and reactive or mucosa is moist Cardio: S1-S2 regular rate and rhythm Respiratory: Lungs are clear. Increased respiratory effort. Abdomen: Soft nontender no rebound or guarding no liver spleen enlargement no appreciable hernias Extremities: Full range of motion no appreciable weakness no cyanosis or edema. Neurologic: Grossly intact. Objective Labs Result Diagrams: 04/21/21 04:55 04/20/21 04:50 Labs: Laboratory Results - last 24 hr 04/21/21 04:55 WBC 12.1 H RBC 4.40 L Hgb 12.1 L Hct 37.1 L MCV 84.4 MCH 27.4 MCHC 32.5 RDW 14.1 Plt Count 260 Neut % (Auto) Not Reportable Lymph % (Auto) Not Reportable [place] % (Auto) Not Reportable Eos % (Auto) Not Reportable Baso % (Auto) Not Reportable Lymph # (Auto) Not Reportable [place] # (Auto) Not Reportable Baso # (Auto) Not Reportable Total Counted 100 Seg Neutrophils % 78.0 H Band Neutrophils % 1.0 L Lymphocytes % (Manual) 15.0 L Monocytes % (Manual) 3.0 Eosinophils % (Manual) 1.0 L [place]amyelocytes % 2.0 H Neutrophils # (Manual) 9559 H RBC Morphology Normal morphology PFSH Surgical History Status post hernia repair Status post knee surgery Social History household members: spouse Smoking Status: Never smoker second hand exposure: Yes (I was when I was growing up) alcohol intake: never substance use type: does not use Assessment & Plan Assessment & Plan narrative: COVID pneumonia continue with remdesivir and Decadron. On heated high-flow oxygen. Intermittent elevation of oxygen on heated high-flow. Initial concern yesterday with his PICC line which had to be replaced possible venous thromboembolus. Ultrasound was unrevealing. Patient still on prophylaxis DVT dose Lovenox. Acute respiratory failure due to COVID pneumonia. ABG reviewed yesterday fairly stable oxygen levels. Continue with prone. He feels like nebulizing is helpful for with his breathing and we will continue with this. Acute Urinary obstruction patient had a Vora catheter placed. He says is helping. Constipation. Stool regiment started with MiraLax suppositories and Colace. Bowel movement today. Patient says he feels better. Essential hypertension losartan and hydrochlorothiazide PVCs. Patient with intermittent PVCs check electrolytes and magnesium today. Transaminitis with elevation of LFTs. Due to acute illness with COVID medications except. Will continue to monitor. DVT prophylaxis with Lovenox full code Quality VTE Deep Vein Thrombosis/Pulmonary Embolism Present on Admission: No
[2021-04-21 11:34] LABS: Alanine Aminotransferase 60 IU/L (<50); Albumin 3.2 g/dL (3.5-5.0); Alkaline Phosphatase 52 U/L (38-126); Aspartate Aminotransferase 49 IU/L (17-59); Bilirubin Total 1.1 mg/dL (0.2-1.3); Blood Urea Nitrogen 39 mg/dL (9-20); Calcium 8.6 mg/dL (8.4-10.2); Carbon Dioxide 28 mmol/L (22-32); Chloride 105 mmol/L (98-107); Estimated Glomerular Filt Rate > 60.0 mL/min (>60); Globulin 3.1 g/dL (1.7-4.1); Glucose 124 mg/dL (80-110); HEMOLYSIS < 15 (0-50); Magnesium 2.1 mg/dL (1.6-2.3); Sodium 138 mmol/L (137-145); Total Protein 6.3 g/dL (6.3-8.2)
[2021-04-21] MEDS: PANTOPRAZOLE DR 40 MG TABLET PO (13:40)
[2021-04-21] MEDS: MAG HYDROX/ALUM/SIMETH 30 ML UDC PO (13:46)
--- NOTE | 2021-04-21 15:17 | CM.DPC ---
DCP Cont: Discussed patient during team rounds. It is noted that he is improving, per RT. He is still on oxygen, but is compliant with working with RT. P: DCP to continue to follow for any needs. Plan is for home when stable, and not in demands of oxygen. Gregoria Rendon RN/Diazo Technician
[2021-04-21] MEDS: MELATONIN 3 MG TABLET 6 MG PO (19:42)
[2021-04-21] MEDS: REMDESIVIR 100 MG in SODIUM CHLORIDE 0.9% 230 ML 250 ML IV (21:06)
[2021-04-22] VITALS (17 sets, daily range): BP systolic 106–131; BP diastolic 55–73; PULSE 57–94; RESP 15–28; TEMP 36.5–36.6; O2SAT 92–96
[2021-04-22 04:33] LABS: Hemoglobin 12.9 g/dL (13.5-17.5); Mean Corpuscular HGB Conc 32.1 % (30-36); Mean Corpuscular Hemoglobin 27.2 PG (26-34); Mean Corpuscular Volume 84.7 fL (80-100); Platelet Count 293 X10^3/uL (150-400); Red Blood Cell Count 4.73 X10^6/uL (4.5-5.9); Red Cell Distribution Width 14.2 % (11.6-14.8); White Blood Cell Count 15.6 X10^3/uL (4.5-11.0)
[2021-04-22 04:35] LABS: Add Manual Diff / Slide Review YES
[2021-04-22] MEDS: PANTOPRAZOLE DR 40 MG TABLET PO (06:04)
[2021-04-22 06:53] LABS: Neutrophils Absolute Manual 13104 /uL (3000-5900); Nucleated Red Blood Cells 1 #/Diff; RBC Morphology Normal Morphology; Total Cells Counted 100
--- NOTE | 2021-04-22 08:56 | P.PN_ITS ---
Subjective Subjective Date Patient Seen: 04/22/21 Time Patient Seen: 08:40 Interval history: Did ok through the weekend this morning still wiped out on 60L but holding in the 90s. Exam Vital Signs (past 8 hours): - 04/22/21 02:30 04/22/21 04:00 04/22/21 04:30 Temperature 97.8 F Pulse Rate 60 64 Respiratory Rate 15 18 Blood Pressure 114/64 118/68 Pulse Oximetry 94 94 96 04/22/21 05:00 04/22/21 08:32 Temperature Pulse Rate 57 L 78 Respiratory Rate 16 28 H Blood Pressure 118/62 Pulse Oximetry 96 92 Fraction of Inspired Oxygen 66 Oxygen Delivery Method Heated High Flow Oxygen Flow Rate 60 Objective Labs Result Diagrams: 04/22/21 04:10 04/21/21 11:07 Labs: Laboratory Results - last 24 hr 04/21/21 04/22/21 11:07 04:10 WBC 15.6 H RBC 4.73 Hgb 12.9 L Hct 40.0 L MCV 84.7 MCH 27.2 MCHC 32.1 RDW 14.2 Plt Count 293 Neut % (Auto) Not Reportable Lymph % (Auto) Not Reportable [place] % (Auto) Not Reportable Eos % (Auto) Not Reportable Baso % (Auto) Not Reportable Lymph # (Auto) Not Reportable [place] # (Auto) Not Reportable Baso # (Auto) Not Reportable Total Counted 100 Seg Neutrophils % 84.0 H Lymphocytes % (Manual) 6.0 L Monocytes % (Manual) 10.0 Neutrophils # (Manual) 48541 H Nucleated RBCs 1 H RBC Morphology Normal morphology Sodium 138 Potassium 4.0 Chloride 105 Carbon Dioxide 28 BUN 39 H Creatinine 0.78 Estimated GFR > 60.0 BUN/Creatinine Ratio 50.0 H Glucose 124 H Calcium 8.6 Magnesium 2.1 Total Bilirubin 1.1 AST 49 ALT 60 H Alkaline Phosphatase 52 Total Protein 6.3 Albumin 3.2 L Globulin 3.1 Albumin/Globulin Ratio 1.0 PFSH Surgical History Status post hernia repair Status post knee surgery Social History household members: spouse Smoking Status: Never smoker second hand exposure: Yes (I was when I was growing up) alcohol intake: never substance use type: does not use Assessment & Plan Assessment & Plan narrative: #COVID pneumonia Continue with remdesivir and Decadron. Heated high flow O2 and CPAP as tolerated. He is holding at upper limits of what we can offer. #new Leukocytosis WBC bump noted this morning with junkier lung sounds. I suspect superinfection either from CAUTI or HCAP. cultures ordered with broad-spec abx and one-time dose of lasix. #Acute respiratory failure due to COVID pneumonia. ABG maintaining fairly stable oxygen levels. Continue with proning and CPAP. He feels like nebulizing is helpful for with his breathing and we will continue with this. #Acute Urinary Obstruction: continue Vora. #Constipation: BM yesterday continue bowel regimen #Essential hypertension: continue home losartan and hydrochlorothiazide #PVCs noted over the weekend, electrolytes wnl, continue to monitor #Transaminitis: Due to acute illness with COVID medications except. Will continue to monitor. DVT ppx: lovenox Code: Full code - does not desire intubation for hypoxia MDM: Becky diet: as tolerated Quality VTE Deep Vein Thrombosis/Pulmonary Embolism Present on Admission: No
[2021-04-22 09:12] LABS: HCO3 ABG 29 mmol/L (22-26); Oxygen Saturation ABG 97 % (95-100); PCO2 ABG 39.9 mmHg (35-45); PO2 ABG 84 mmHg (80-100); TCO2 ABG 30 mmol/L (21-31); pH ABG 7.46 (7.35-7.45)
[2021-04-22 09:13] LABS: Fractionated Inspired Oxygen 100
[2021-04-22] MEDS: FUROSEMIDE 40 MG/4 ML VIAL IV (10:07)
[2021-04-22] MEDS: LOSARTAN 50 MG TABLET PO (10:13)
[2021-04-22] MEDS: polyethylene glycoL 3350 17 GM POWD.PACK PO (10:13)
[2021-04-22] MEDS: guaiFENesin ER 600 MG TAB PO ×2 (10:13→20:13)
[2021-04-22] MEDS: ENOXAPARIN 40 MG/0.4 ML SYRINGE SUBCUT (10:13)
[2021-04-22] MEDS: SODIUM CHLORIDE 0.9% FLUSH 10 ML IV ×2 (10:13→20:13)
[2021-04-22] MEDS: hydroCHLOROthiazide 25 MG TABLET 12.5 MG PO (10:15)
[2021-04-22] MEDS: BARICITINIB 2 MG TABLET 4 MG PO (10:15)
[2021-04-22] MEDS: DEXAMETHASONE 10 MG/ML VIAL 6 MG IV (10:15)
[2021-04-22] MEDS: BENZONATATE 100 MG CAPSULE 200 MG PO ×3 (10:15→20:13)
[2021-04-22] MEDS: HYDROCODONE/ACET 5/325 TABLET 1 TAB PO (10:17)
[2021-04-22] MEDS: LORazepam 0.5 MG TABLET PO (10:18)
[2021-04-22] MEDS: PIPERACILLIN/TAZO 4.5 GM in SODIUM CHLORIDE 0.9% 100 ML 200 ML IV (10:26)
[2021-04-22] MEDS: VANCOMYCIN 2,000 MG/400 ML PIGGYBACK 200 MG IV (10:27)
--- NOTE | 2021-04-22 10:27 | CM.DPC ---
DCP Cont: Discussed patient during team rounds, R.T. was present. Patient could potentially be intubated, he has shown little improvement. According to RT, they are going to attempt Lasix first, with hopes that his blood pressure will not drop too low. He is a full code. P: DCP to continue to follow and will be available for any resources needed. Gregoria Rendon RN/Automotive Glass Installer
[2021-04-22] MEDS: SODIUM CHLORIDE 0.9% 250 ML 21 ML IV (10:28)
[2021-04-22] MEDS: VANCOMYCIN PER PHARMACY 1 REQUEST MISC (11:50)
[2021-04-22] MEDS: PIPERACILLIN/TAZO 3.375 GM in SODIUM CHLORIDE 0.9% 100 ML 25 ML IV ×2 (13:56→21:58)
[2021-04-22] MEDS: VANCOMYCIN 1,500 MG/300 ML PIGGYBACK 200 MG IV (20:13)
[2021-04-22] MEDS: REMDESIVIR 100 MG in SODIUM CHLORIDE 0.9% 230 ML 250 ML IV (21:59)
[2021-04-23] VITALS (16 sets, daily range): BP systolic 117–143; BP diastolic 60–78; PULSE 61–89; RESP 15–80; TEMP 36.2–37.1; O2SAT 50–100; BMI 33.7
[2021-04-23] MEDS: PIPERACILLIN/TAZO 3.375 GM in SODIUM CHLORIDE 0.9% 100 ML 25 ML IV ×3 (04:58→21:24)
[2021-04-23] MEDS: PANTOPRAZOLE DR 40 MG TABLET PO (06:02)
[2021-04-23] MEDS: HYDROCODONE/ACET 5/325 TABLET 1 TAB PO ×3 (08:29→21:38)
[2021-04-23] MEDS: BARICITINIB 2 MG TABLET 4 MG PO (08:30)
[2021-04-23] MEDS: VANCOMYCIN 1,500 MG/300 ML PIGGYBACK 200 MG IV ×2 (08:30→19:30)
[2021-04-23] MEDS: BENZONATATE 100 MG CAPSULE 200 MG PO ×3 (08:30→20:26)
[2021-04-23] MEDS: hydroCHLOROthiazide 25 MG TABLET 12.5 MG PO (08:30)
[2021-04-23] MEDS: ENOXAPARIN 40 MG/0.4 ML SYRINGE SUBCUT (08:30)
[2021-04-23] MEDS: polyethylene glycoL 3350 17 GM POWD.PACK PO (08:30)
[2021-04-23] MEDS: LORazepam 0.5 MG TABLET PO ×2 (08:30→12:55)
[2021-04-23] MEDS: LOSARTAN 50 MG TABLET PO (08:31)
[2021-04-23] MEDS: guaiFENesin ER 600 MG TAB PO ×2 (08:31→20:26)
[2021-04-23] MEDS: SODIUM CHLORIDE 0.9% FLUSH 10 ML IV ×2 (08:31→20:26)
[2021-04-23] MEDS: DEXAMETHASONE 10 MG/ML VIAL 6 MG IV (08:31)
[2021-04-23 10:11] LABS: Hematocrit 40.9 % (41-53); Hemoglobin 13.4 g/dL (13.5-17.5); Mean Corpuscular HGB Conc 32.8 % (30-36); Mean Corpuscular Hemoglobin 27.7 PG (26-34); Mean Corpuscular Volume 84.6 fL (80-100); Platelet Count 334 X10^3/uL (150-400); Red Blood Cell Count 4.83 X10^6/uL (4.5-5.9); Red Cell Distribution Width 14.1 % (11.6-14.8); White Blood Cell Count 18.9 X10^3/uL (4.5-11.0)
[2021-04-23 10:15] LABS: BUN Creatinine Ratio 45.7 (6-22); Blood Urea Nitrogen 42 mg/dL (9-20); Carbon Dioxide 28 mmol/L (22-32); Chloride 104 mmol/L (98-107); Estimated Glomerular Filt Rate > 60.0 mL/min (>60); Glucose 100 mg/dL (80-110); HEMOLYSIS < 15 (0-50); Potassium 3.7 mmol/L (3.4-5.1); Sodium 137 mmol/L (137-145)
[2021-04-23 10:19] LABS: Add Manual Diff / Slide Review YES
[2021-04-23 10:26] LABS: Fractionated Inspired Oxygen 100; HCO3 ABG 26 mmol/L (22-26); Oxygen Saturation ABG 88 % (95-100); PO2 ABG 51 mmHg (80-100); TCO2 ABG 27 mmol/L (21-31); pH ABG 7.46 (7.35-7.45)
--- NOTE | 2021-04-23 10:54 | PC.NURSE ---
Addendum entered by Bridgette Rodriguez R.N. 04/23/21 13:31: Repeat ABG done with pO2 277 while pt on 60L and 100% FiO2, reported to MD by RT. SpO2 98-100%. RT at bedside and pt assisted to sitting position and taken off heated HFNC to RA, SpO2 88-92%, no distress noted by pt, NSR in the 80s, respirations non-labored. Placed on 4L regular HFNC and SpO2 at 94-96%, will wean off oxygen as able, pt back to side lying/proning. Original Note: Day Shift Note On heated HFNC on AM assessment 40L and FiO2 80%, attempted to sit up at bedside for breakfast but could not recover to an acceptable SpO2 for eating - oxygen not above 84-85% while maxed out on heated HFNC (60L and 100%). Took AM pills then assisted back to prone position. SpO2 88-91%. ABG completed at bedside by RT and results given to MD. Labs drawn via PICC. Dr. Key at bedside and initially began to plan for intubation, supplies gathered and sedation orders received. Everardo (son) notified of plan and likely transfer, MD notified Becky (). MD back to room and decision made to postpone intubation at this time with plans to place on bipap. Pt continues maxed out on heated HFNC at this time and is alternating between side lying and proning. SpO2 92-97% at this time. Dr. Royal consulted.
[2021-04-23 10:59] LABS: Neutrophils Absolute Manual 17010 /uL (3000-5900); Total Cells Counted 100
[2021-04-23 11:00] LABS: RBC Morphology Normal Morphology
--- NOTE | 2021-04-23 11:04 | P.PN_ITS ---
Subjective Subjective Interval history: still about the same today. wiped out. desats if he sits up or tries to eat. i feel ok Exam Vital Signs (past 8 hours): - 04/23/21 04:00 04/23/21 04:05 04/23/21 08:00 Temperature 97.4 F L 98.8 F Pulse Rate 69 63 89 Respiratory Rate 18 16 80 H Blood Pressure 117/78 123/70 143/70 H Pulse Oximetry 99 98 50 L 04/23/21 08:30 Temperature Pulse Rate Respiratory Rate 18 Blood Pressure Pulse Oximetry 90 L Fraction of Inspired Oxygen 0.83 Oxygen Delivery Method Heated High Flow Oxygen Flow Rate 40 Narrative Exam Narrative: wiped out donovan laying on side but speaking in full sentences Const General: cooperative and comfortable Orientation: alert, awake and oriented x3 HENMT Head: normal to inspection, normocephalic and atraumatic Resp Other: quiet junky lung sounds bilaterally. mildly increased WOB but comfortable. Cardio Other: regular rate and rhythm, S1/S2. not tachycardic today which i interpret positively GI Auscultation: normal bowel sounds Skin General: no rashes or lesions noted Neuro General: patient alert, patient awake, patient oriented x3, moves all extremities and CN's II-XI intact bilaterally Psych Appearance: grossly normal Mood: congruent mood Affect: normal affect Thought Process: normal Thought Content: normal Other: consulting with Objective Labs Result Diagrams: 04/23/21 09:55 04/23/21 09:55 Labs: Laboratory Results - last 24 hr 04/23/21 04/23/21 04/23/21 09:18 09:55 09:55 WBC 18.9 H RBC 4.83 Hgb 13.4 L Hct 40.9 L MCV 84.6 MCH 27.7 MCHC 32.8 RDW 14.1 Plt Count 334 Neut % (Auto) Not Reportable Lymph % (Auto) Not Reportable [place] % (Auto) Not Reportable Eos % (Auto) Not Reportable Baso % (Auto) Not Reportable Lymph # (Auto) Not Reportable [place] # (Auto) Not Reportable Baso # (Auto) Not Reportable Total Counted 100 Seg Neutrophils % 87.0 H Band Neutrophils % 3.0 Lymphocytes % (Manual) 5.0 L Monocytes % (Manual) 5.0 Neutrophils # (Manual) 05019 H RBC Morphology Normal morphology ABG pH 7.46 H ABG pCO2 36.0 ABG pO2 51 L ABG HCO3 26 ABG Total CO2 27 ABG O2 Saturation 88 L ABG Base Excess 2.0 FiO2 100 Sodium 137 Potassium 3.7 Chloride 104 Carbon Dioxide 28 BUN 42 H Creatinine 0.92 Estimated GFR > 60.0 BUN/Creatinine Ratio 45.7 H Glucose 100 Calcium 8.0 L PFSH Surgical History Status post hernia repair Status post knee surgery Social History household members: spouse Smoking Status: Never smoker second hand exposure: Yes (I was when I was growing up) alcohol intake: never substance use type: does not use Assessment & Plan Assessment & Plan narrative: #COVID pneumonia Continue with remdesivir and Decadron. Heated high flow O2 and CPAP as tolerated. He is holding at upper limits of what we can offer. Hospitalist consulted appreciate input. Extensive conversation regarding risk/benefit of intubation at this time. He is holding steady but does have potential for whitman decline. If intubated he would require full prone team at significantly higher level of care which may or may not be available. Intubation and retention at our facility would not be in patient's best interest right now. Currently can get up to 99% pulse ox, doing ok with proning and some cpap use. PO intake has been limited, push Ensures prn and begin planning for TPN #Leukocytosis WBC bumped 2 days ago with junkier lung sounds, indwelling catheter. I suspect superinfection either from CAUTI or HCAP. cultures NGTD with broad-spec abx IV. #Acute respiratory failure due to COVID pneumonia. ABG looks ok except for low p02 in the 50s which is comparable to previous. No hypercarbia nor acidemia. Continue with proning and C/BiPAP. He feels like nebulizing is helpful for with his breathing and we will continue with this. #Acute Urinary Obstruction: continue Vora. #Constipation: continue bowel regimen #Essential hypertension: continue home losartan and hydrochlorothiazide #PVCs noted over the weekend, electrolytes wnl, continue to monitor #Transaminitis: Due to acute illness with COVID medications except. Will continue to monitor. DVT ppx: lovenox Code: Full code - does not desire intubation for hypoxia MDM: Becky diet: as tolerated Quality VTE Deep Vein Thrombosis/Pulmonary Embolism Present on Admission: No
[2021-04-23 11:49] LABS: Lactate Dehydrogenase 989 U/L (313-618)
[2021-04-23 11:52] LABS: C-Reactive Protein Quant 2.8 mg/dL (<1.0)
--- NOTE | 2021-04-23 11:55 | DIET.PN ---
Addendum entered by Dinorah Anthony 04/24/21 11:15: Pt's O2 needs de-escalated so pt now able to tolerate PO intake and TPN deferred for now. POs past two meals 75-100%. Original Note: Dietary Progress Note Assessment: 65y M admitted 7d ago for covid+ pneumonia. Pt proning frequently, cooperative with all care and suggestions, maxed out currently on HHFNC with wavering plans for intubation. Pt has poor POs secondary to desaturation with any PO intake, O% POs past 4 meals. Concern for aspiration event if pt needs emergent intubation. Attending physician requests TPN to begin tonight as feeding tube would reduce seal on breathing apparatus. Pt has PICC line placed. HT: 175.2cm WT: 103.4kg ABW: 80.24kg BMI: 33.7 (class 1 obesity) Labs: WBC 18.9 H, CRP 2.8 H, Lactate Dehydrogenase 989 H, DDimer 2171 H, Nutrition Diagnosis:inadequate protein energy intake r/t difficulty eating aeb pt covid+ on max HHFNC, pt desaturating c any PO intake, 0% POs x5 meal trays, high nutrient need secondary to acute inflammatory process. Interventions: Recc initiating continuous TPN via PICC. Day 1: 1 L Cinimix 5/20 starting at 42mL/h Day 2: 1.5 L Clinimix 5/20 running at 62mL/h Day 3: Goal Rate 2L Clinimix 5/20 running at 82mL/h c 250mL IVFE on M, W, F. Goal TPN provides 1,974kcal (99% needs) and 100g PRO (125% needs). Fluids to be monitored by attending physician to avoid fluid overload. Diet Order: Heart Healthy EER: per ESPMIMI Covid19 reccs: 2,000kcal (25kcal/kg ABW) 80g PRO (1g/kg ABW) Monitoring/Evaluations: following daily
[2021-04-23 12:07] LABS: Procalcitonin 0.08 ng/mL (<0.5)
[2021-04-23 12:17] LABS: D Dimer 2171 ng/mL (<230)
[2021-04-23 12:25] LABS: Ferritin 130 ng/mL (18-464)
[2021-04-23 12:46] LABS: PCO2 ABG 46.9 mmHg (35-45); pH ABG 7.45 (7.35-7.45)
[2021-04-23 12:47] LABS: Fractionated Inspired Oxygen 100; HCO3 ABG 33 mmol/L (22-26); Oxygen Saturation ABG 100 % (95-100); PO2 ABG 277 mmHg (80-100); TCO2 ABG 34 mmol/L (21-31)
--- NOTE | 2021-04-23 13:03 | DI.RAD.S_ITS ---
PROCEDURE: XR CHEST 1V INDICATIONS: sob TECHNIQUE: One view of the chest was acquired. COMPARISON: [facility], CR, XR CHEST 1V, 04/16/2021, 0:24. [facility], CR, XR CHEST FOR PICC 1V, 04/19/2021, 17:44. FINDINGS: Surgical changes and devices: None. Lungs and pleura: There are bilateral confluent airspace opacities with a peripheral and basilar predominance which appear progressively increased compared to the prior studies. No pleural effusions or pneumothorax. Mediastinum: Mediastinal contours appear unchanged. Heart size is enlarged. Bones and chest wall: No suspicious bony lesions. Overlying soft tissues appear unremarkable. IMPRESSION: 1. Progressively increased bilateral confluent airspace opacities consistent with pneumonia. Dictated by: Campos Patton M.D. on 04/23/2021 at 14:12 Approved by: Campos Patton M.D. on 04/23/2021 at 14:19
--- NOTE | 2021-04-23 14:18 | P.CONS_ITS ---
History of Present Illness Consult details Date Patient Seen: 04/23/21 Time Patient Seen: 11:00 Chief complaint: difficulty breathing Reason for consult: hypoxemia Requesting provider: Vamshi Key Narrative: Mr. Dueñas is a 65M with PMH of HT who presented with shortness of breath and was diagnosed with COVID pneumonia and was admitted on 04/16. He has been on remdesivir, dexamethasone, and baracitinib. He has had a waxing and waning course but over the last few days has been requiring higher oxygen support with heated high flow. He was started on broad spectrum antibiotics yesterday as he was having a rising white count and had concern for possible bacterial superinfection. He is a full code. This morning he had been on approximately 40L at 80% fio2 and got up and desaturated and was placed on max setting on high flow. I was consulted for additional management for his hypoxemic respiratory failure. When I saw him he was appearing comfortable, he was laying on his side satting 99% on high flow. He denied shortness of breath and stated he was feeling better. Labs were ordered and notable for a downtrendi ng CRP, LDH, and normal procalcitonin. His D-dimer was increasingly elevated at greater than 2000. He had a repeat ABG which showed PaO2>200, from an gas that was drawn earlier today with pao2 of 51. Respiratory was subsequently able to wean him down to nasal cannula oxygen which he has been tolerating well with no shortness of breath. Family history: father with CVA Meds Home Medications and Allergies Home Medications Medication Instructions Recorded Confirmed Type ranitidine HCl 150 mg tablet 150 mg PO Q3D tab 10/18/19 04/16/21 History losartan 50 mg tablet 50 mg PO DAILY #90 tab 10/19/19 04/16/21 Rx hydrochlorothiazide 12.5 mg tablet 12.5 mg PO DAILY #30 tab 11/01/20 04/16/21 Rx albuterol sulfate 90 mcg/actuation 2 puff INHALATION Q4-6H PRN #8.5 g 04/14/21 04/16/21 Rx aerosol inhaler benzonatate 100 mg capsule 100 mg PO BID PRN #20 cap 04/14/21 04/16/21 Rx (Tessalon Perles) inhalational spacing device #1 ea 04/14/21 04/16/21 Rx (BreatheRite MDI Spacer) Allergies Allergy/AdvReac Type Severity Reaction Status Date / Time No Known Drug Allergies Allergy Verified 04/16/21 00:10 Review of Systems Review of Systems Narrative: 14 sysytems reviewed and negative aside from what is noted in HPI Exam Vital Signs (past 8 hours): - 04/23/21 08:00 04/23/21 08:30 04/23/21 11:24 Temperature 98.8 F Pulse Rate 89 89 Respiratory Rate 80 H 18 22 Blood Pressure 143/70 H Pulse Oximetry 50 L 90 L 90 L 04/23/21 12:00 04/23/21 12:19 04/23/21 12:49 Temperature 97.6 F Pulse Rate 74 Respiratory Rate 16 20 20 Blood Pressure 126/60 Pulse Oximetry 92 100 93 04/23/21 14:00 Temperature Pulse Rate Respiratory Rate Blood Pressure Pulse Oximetry 95 Fraction of Inspired Oxygen 100 Oxygen Delivery Method Heated High Flow Oxygen Flow Rate 2 Narrative Exam Narrative: GEN: no acute distress HEENT: PERRL, moist mucous membranes NECK: no jvd, trachea midline CV: regular rate and rhythm with no murmurs PULM: speaking full sentences, no tachypnea, lung sounds diminished ABD: soft, nontender, nondistended, no organomegaly, normal bowel sounds EXT: warm, well perfused with no edema NEURO: awake alert and oriented x3, moving all extremities with no focal deficits noted SKIN: no rashes noted PSYCH: pleasant, cooperative Objective Labs Result Diagrams: 04/23/21 09:55 04/23/21 09:55 Labs: Laboratory Results - last 24 hr 04/23/21 04/23/21 04/23/21 09:18 09:55 09:55 WBC 18.9 H RBC 4.83 Hgb 13.4 L Hct 40.9 L MCV 84.6 MCH 27.7 MCHC 32.8 RDW 14.1 Plt Count 334 Neut % (Auto) Not Reportable Lymph % (Auto) Not Reportable [place] % (Auto) Not Reportable Eos % (Auto) Not Reportable Baso % (Auto) Not Reportable Lymph # (Auto) Not Reportable [place] # (Auto) Not Reportable Baso # (Auto) Not Reportable Total Counted 100 Seg Neutrophils % 87.0 H Band Neutrophils % 3.0 Lymphocytes % (Manual) 5.0 L Monocytes % (Manual) 5.0 Neutrophils # (Manual) 68334 H RBC Morphology Normal morphology D-Dimer ABG pH 7.46 H ABG pCO2 36.0 ABG pO2 51 L ABG HCO3 26 ABG Total CO2 27 ABG O2 Saturation 88 L ABG Base Excess 2.0 FiO2 100 Sodium 137 Potassium 3.7 Chloride 104 Carbon Dioxide 28 BUN 42 H Creatinine 0.92 Estimated GFR > 60.0 BUN/Creatinine Ratio 45.7 H Glucose 100 Calcium 8.0 L Ferritin Lactate Dehydrogenase C-Reactive Protein Procalcitonin 04/23/21 04/23/21 04/23/21 09:55 09:55 11:40 WBC RBC Hgb Hct MCV MCH MCHC RDW Plt Count Neut % (Auto) Lymph % (Auto) [place] % (Auto) Eos % (Auto) Baso % (Auto) Lymph # (Auto) [place] # (Auto) Baso # (Auto) Total Counted Seg Neutrophils % Band Neutrophils % Lymphocytes % (Manual) Monocytes % (Manual) Neutrophils # (Manual) RBC Morphology D-Dimer 2171 H ABG pH ABG pCO2 ABG pO2 ABG HCO3 ABG Total CO2 ABG O2 Saturation ABG Base Excess FiO2 Sodium Potassium Chloride Carbon Dioxide BUN Creatinine Estimated GFR BUN/Creatinine Ratio Glucose Calcium Ferritin 130 Lactate Dehydrogenase 989 H C-Reactive Protein 2.8 H Procalcitonin 0.08 04/23/21 12:17 WBC RBC Hgb Hct MCV MCH MCHC RDW Plt Count Neut % (Auto) Lymph % (Auto) [place] % (Auto) Eos % (Auto) Baso % (Auto) Lymph # (Auto) [place] # (Auto) Baso # (Auto) Total Counted Seg Neutrophils % Band Neutrophils % Lymphocytes % (Manual) Monocytes % (Manual) Neutrophils # (Manual) RBC Morphology D-Dimer ABG pH 7.45 ABG pCO2 46.9 H ABG pO2 277 H* ABG HCO3 33 H ABG Total CO2 34 H ABG O2 Saturation 100 ABG Base Excess 9.0 H FiO2 100 Sodium Potassium Chloride Carbon Dioxide BUN Creatinine Estimated GFR BUN/Creatinine Ratio Glucose Calcium Ferritin Lactate Dehydrogenase C-Reactive Protein Procalcitonin Assessment & Plan Assessment & Plan narrative: Mr. Dueñas is a 65M admitted for hypoxemic respiratory failure secondary to COVID pneumonia. 1. Acute hypoxemic respiratory failure secondary to COVID pneumonia -on repeat ABG, pao2 reassuring, and was able to wean off high flow oxygen, and as of now has been tolerating well -already ordered for remdesivir, baracitinib, dexamethasone -inflammatory markers reassuring and improving -being treated for possible bacterial superinfection due to rising white count, procalcitonin is normal, leukocytosis could also be related to steroids -d-dimer still elevated, already on VTE prophylaxis, if concern is high and if patient decompensates could consider CTA CODE: Full DVT ppx: Lovenox sc Proxy: Becky Dueñas, I have utilized all available immediate resources to obtain, update, or review the patient's current medications. At this point patient has had marked improvement. Will sign off.
--- NOTE | 2021-04-23 15:44 | CM.DPC ---
Discharge Planning/Care Management CM Discharge Assessment Start: 04/16/21 10:47 Freq: Status: Active Protocol: Document 04/16/21 10:47 (Rec: 04/16/21 10:58 [id number]) Discharge Planning Assessment Assigned Pharmacist Helper Gregoria Rendon RN/Block Making Machine Operator Advance Directives? No Advance Directives on File No History Provided By Patient,Medical Record Prior Living Arrangements House Household Members spouse Type of transporation used prior to Drives own vehicle admit Willing to Return to Facility? No Independent with ADL's Yes Is patient alert and oriented? Yes Barriers to Discharge No Discharge Plan Home Transportation Arrangement Spouse Referrals Initiated None needed Whiteboard Updated in Patient Room with No name and ext. # of Pharmacist Helper Comment Patient is COVID positive, have not been in patient's room. Review Status In Process Next Review Type Continued Stay Review 04/16/21 10:50 CM Disch. Assessment Note by Gregoria Rendon DCP: Case received, EMR reviewed. Did not meet with patient, secondary to being COVID positive. Attempted to call room, no answer. Completed DCP assessment based upon information available. Patient is a 65 year old male who admitted early this morning to the care of the hospitalist team. PCP: Dr Key Payer: confirmed: [employer]. Patient came to the hospital via private vehicle secondary to increased shortness of breath. Patient holds diagnosis of COVID/Pneumonia. Patient had a cough in March, was tested then for COVID, and was negative. He received first vaccine on 04/10, was tested on 04/11 and was positive. Patient has noted hypoxia, and is here for oxygen support. He also has history of asthma, as well as HTN. Patient resides in [place] with his , Becky. He looks to be independent upon his baseline based upon information in the chart. Attempted to call patient's room with no answer, and no cell phone. P: DCP will continue to check in and monitor for any needs. Patient should be able to go home when he is medically stable. Gregoria Rendon RN/Block Making Machine Operator Initialized on 04/16/21 10:50 - END OF NOTE
--- NOTE | 2021-04-23 15:47 | CM.DPC ---
Addendum entered by Britta Woodward LPN 04/23/21 15:56: Pt is now on 4 L heated high flow oxygen and with plans to begin o2 wean. DCP team will continue to follow. Original Note: DCP: continued: EMR reviewed and discussed case in Team Rounds and then later with Dr. Key. Plan discussed in Rounds was for intubation and then ? transfer to higher level of care hospital setting. Dr. Key later confirmed that he made decision to defer this plan and consulted with hospitalist Dr. Royal (whose note in available and with a sign off after recommendations.) He also spoke with pt and his Becky as part of the decision making. Taxation Agent Dinorah was consulted and TPN is now planned to start this evening. PICC ordered.
[2021-04-23] MEDS: VANCOMYCIN TROUGH 1 REQUEST MISC (19:30)
[2021-04-23 19:34] LABS: Acinetobacter baumannii Not Detected (Not Detect); Candida albicans Not Detected (Not Detect); Candida glabrata Not Detected (Not Detect); Candida krusei Not Detected (Not Detect); Candida parapsilosis Not Detected (Not Detect); Candida tropicalis Not Detected (Not Detect); E. coli Not Detected (Not Detect); Enterobacter cloacae complex Not Detected (Not Detect); Enterobacteriaceae species Not Detected (Not Detect); Enterococcus species Not Detected (Not Detect); Haemophilus influenzae Not Detected (Not Detect); Listeria monocytogenes Not Detected (Not Detect); Neisseria meningitidis Not Detected (Not Detect); Proteus species Not Detected (Not Detect); Pseudomonas aeruginosa Not Detected (Not Detect); Serratia marcescens Not Detected (Not Detect); Staphylococcus species Not Detected (Not Detect); Streptococcus agalactiae (Gr B Not Detected (Not Detect); Streptococcus pneumonia Not Detected (Not Detect); Streptococcus pyogenes (Gr A) Not Detected (Not Detect); Streptococcus species Not Detected (Not Detect)
[2021-04-23] MEDS: REMDESIVIR 100 MG in SODIUM CHLORIDE 0.9% 230 ML 250 ML IV (21:25)
[2021-04-23] MEDS: VANCOMYCIN PEAK 1 REQUEST MISC (21:30)
[2021-04-23] MEDS: MELATONIN 3 MG TABLET 6 MG PO (21:37)
[2021-04-23 22:06] LABS: Vancomycin Peak 31.9 ug/mL (20-40)
[2021-04-24] VITALS (13 sets, daily range): BP systolic 100–143; BP diastolic 55–75; PULSE 63–80; RESP 16–40; TEMP 35.6–37.8; O2SAT 92–97
[2021-04-24] MEDS: PIPERACILLIN/TAZO 3.375 GM in SODIUM CHLORIDE 0.9% 100 ML 25 ML IV (05:04)
[2021-04-24] MEDS: PANTOPRAZOLE DR 40 MG TABLET PO (06:00)
[2021-04-24] MEDS: DEXAMETHASONE 10 MG/ML VIAL 6 MG IV (08:39)
[2021-04-24] MEDS: SODIUM CHLORIDE 0.9% FLUSH 10 ML IV ×2 (08:40→21:18)
[2021-04-24] MEDS: ENOXAPARIN 40 MG/0.4 ML SYRINGE SUBCUT (08:40)
[2021-04-24] MEDS: hydroCHLOROthiazide 25 MG TABLET 12.5 MG PO (08:40)
[2021-04-24] MEDS: guaiFENesin ER 600 MG TAB PO ×2 (08:41→21:17)
[2021-04-24] MEDS: LORazepam 0.5 MG TABLET PO ×3 (08:41→21:19)
[2021-04-24] MEDS: HYDROCODONE/ACET 5/325 TABLET 1 TAB PO ×3 (08:41→21:19)
[2021-04-24] MEDS: LOSARTAN 50 MG TABLET PO (08:41)
[2021-04-24] MEDS: BENZONATATE 100 MG CAPSULE 200 MG PO ×2 (08:41→21:17)
[2021-04-24] MEDS: BARICITINIB 2 MG TABLET 4 MG PO (08:42)
[2021-04-24 09:41] LABS: Hematocrit 43.9 % (41-53); Mean Corpuscular Hemoglobin 27.2 PG (26-34); Platelet Count 453 X10^3/uL (150-400); Red Blood Cell Count 5.17 X10^6/uL (4.5-5.9); Red Cell Distribution Width 14.2 % (11.6-14.8); White Blood Cell Count 20.1 X10^3/uL (4.5-11.0)
[2021-04-24 09:46] LABS: Add Manual Diff / Slide Review YES
[2021-04-24 09:54] LABS: Alanine Aminotransferase 58 IU/L (<50); Albumin 3.4 g/dL (3.5-5.0); Albumin Globulin Ratio 1.1 (1.0-2.8); Alkaline Phosphatase 51 U/L (38-126); Aspartate Aminotransferase 35 IU/L (17-59); Bilirubin Total 1.5 mg/dL (0.2-1.3); Blood Urea Nitrogen 43 mg/dL (9-20); Calcium 8.4 mg/dL (8.4-10.2); Carbon Dioxide 26 mmol/L (22-32); Chloride 104 mmol/L (98-107); Estimated Glomerular Filt Rate > 60.0 mL/min (>60); Globulin 3.2 g/dL (1.7-4.1); Glucose 171 mg/dL (80-110); HEMOLYSIS < 15 (0-50); Potassium 3.6 mmol/L (3.4-5.1); Sodium 137 mmol/L (137-145); Total Protein 6.6 g/dL (6.3-8.2)
[2021-04-24 10:10] LABS: Neutrophils Absolute Manual 16683 /uL (3000-5900); RBC Morphology Normal Morphology; Total Cells Counted 100
[2021-04-24] MEDS: AZITHROMYCIN 250 MG TABLET 500 MG PO (10:44)
--- NOTE | 2021-04-24 14:19 | CM.DPC ---
DCP Cont: Spoke to Dr. Key, who indicated that patient will most likely be ready for discharge tomorrow with no needs. Communicated this to Campos in [place]. P: DCP to continue to follow. patient most likely will discharge tomorrow with no needs, as long as he remains stable. Gregoria Rendon RN/Eye Technician
--- NOTE | 2021-04-24 14:26 | PT-IP ANOTE ---
reviewed chart and checked with nurse Banks this morning. Nurse stated that pt is moving and walking good with them and only needed SBA just for safety and tube management and does not think PT is needed at this time. informed nurse that PT will call Dr. Key. Called Dr. Key's office to inform regarding PT eval order and necessity to see pt. checked back with nurse this afternoon and informed that PT has not gotten a call back from the doctor. Dr. Key on the floor checking on a pt. Nurse stated that she just talked to the doctor and agreed to d/c PT eval order.
--- NOTE | 2021-04-24 14:56 | OT.IPNOTE ---
Spoke to pt on the phone regarding OT needs and pt states feels does not has any OT issues and able to take a shower and do all his grooming needs today with only assist from MELON PACKER to wash his back. Suggested may be helpful to have a shower chair at home to use. Therefore discharge OT eval orders.
--- NOTE | 2021-04-24 15:28 | PM.PN.1 ---
Subjective Subjective Date Patient Seen: 04/24/21 Time Patient Seen: 08:50 Interval history: Pt experienced sudden cessation of respiratory failure yesterday afternoon and abruptly transitioned from 60L/100% to 2L via NC which he probably doesn't even need. He feels great today after a shower and eating a big meal for dinner. Weak but up and at em. Vora out. Exam Vital Signs (past 8 hours): - 04/24/21 08:00 04/24/21 08:27 04/24/21 11:36 Temperature 98.2 F Pulse Rate 64 80 69 Respiratory Rate 17 21 22 Blood Pressure 143/68 H Pulse Oximetry 95 94 96 04/24/21 12:00 04/24/21 14:37 Temperature 98.0 F Pulse Rate 70 79 Respiratory Rate 16 33 H Blood Pressure 111/69 Pulse Oximetry 97 93 Fraction of Inspired Oxygen 100 Oxygen Delivery Method Room Air Oxygen Flow Rate 2 Narrative Exam Narrative: perky looking donovan breathing room air Const General: cooperative Nutritional Appearance: underweight (weight loss evident) HENMT Head: normal to inspection Eyes General: appearance normal, both eyes and all related structures Resp Effort & Inspection: normal respiratory effort and able to speak in complete sentences Auscultation: other (mild crackles on the L but generally clear to auscultation) Cardio Rate: regular rate Rhythm: regular rhythm Heart Sounds: S1 normal and S2 normal GI Inspection: normal to inspection Skin General: no rashes or lesions noted Neuro General: patient alert, patient awake, patient oriented x3, gait normal and CN's II-XI intact bilaterally Extrem General: full ROM Psych Appearance: grossly normal and well kempt Mental Status: mental status grossly normal Speech and Movement: speech and movement normal Objective Labs Result Diagrams: 04/24/21 09:30 04/24/21 09:30 Labs: Laboratory Results - last 24 hr 04/22/21 04/23/21 04/23/21 09:40 19:30 21:30 WBC RBC Hgb Hct MCV MCH MCHC RDW Plt Count Neut % (Auto) Lymph % (Auto) [place] % (Auto) Eos % (Auto) Baso % (Auto) Lymph # (Auto) [place] # (Auto) Baso # (Auto) Total Counted Seg Neutrophils % Band Neutrophils % Lymphocytes % (Manual) Monocytes % (Manual) Neutrophils # (Manual) RBC Morphology Sodium Potassium Chloride Carbon Dioxide BUN Creatinine Estimated GFR BUN/Creatinine Ratio Glucose Calcium Total Bilirubin AST ALT Alkaline Phosphatase Total Protein Albumin Globulin Albumin/Globulin Ratio Vancomycin Peak 31.9 Vancomycin Trough 9.0 L A. baumannii (PCR) Not detected Rupal albicans (PCR) Not detected C. glabrata (PCR) Not detected C. krusei (PCR) Not detected C. parapsilosis (PCR) Not detected C. tropicalis (PCR) Not detected Enterobacteriac sp PCR Not detected E. cloacae complex PCR Not detected Enterococcus sp PCR Not detected E. coli (PCR) Not detected H. influenzae (PCR) Not detected Klebsiella oxytoca PCR Not detected Klebsiella pneumoniae Not detected List. monocytogenes PCR Not detected N. meningitidis (PCR) Not detected Proteus species (PCR) Not detected Serratia marcescens PCR Not detected Staphylococcus sp PCR Not detected Staph aureus (PCR) Not detected mecA-Methicil Res Gene Not Reportable Streptococcus sp PCR Not detected Group A Strep (PCR) Not detected Strep agalactiae (PCR) Not detected Strep pneumoniae (PCR) Not detected P. aeruginosa (PCR) Not detected Aviva/B-Vanco Res Genes Not Reportable KPC-Carbap Res Gene PCR Not Reportable 04/24/21 04/24/21 09:30 09:30 WBC 20.1 H RBC 5.17 Hgb 14.0 Hct 43.9 MCV 85.0 MCH 27.2 MCHC 32.0 RDW 14.2 Plt Count 453 H Neut % (Auto) Not Reportable Lymph % (Auto) Not Reportable [place] % (Auto) Not Reportable Eos % (Auto) Not Reportable Baso % (Auto) Not Reportable Lymph # (Auto) Not Reportable [place] # (Auto) Not Reportable Baso # (Auto) Not Reportable Total Counted 100 Seg Neutrophils % 78.0 H Band Neutrophils % 5.0 Lymphocytes % (Manual) 9.0 L Monocytes % (Manual) 8.0 Neutrophils # (Manual) 43348 H RBC Morphology Normal morphology Sodium 137 Potassium 3.6 Chloride 104 Carbon Dioxide 26 BUN 43 H Creatinine 0.86 Estimated GFR > 60.0 BUN/Creatinine Ratio 50.0 H Glucose 171 H Calcium 8.4 Total Bilirubin 1.5 H AST 35 ALT 58 H Alkaline Phosphatase 51 Total Protein 6.6 Albumin 3.4 L Globulin 3.2 Albumin/Globulin Ratio 1.1 Vancomycin Peak Vancomycin Trough A. baumannii (PCR) Rupal albicans (PCR) C. glabrata (PCR) C. krusei (PCR) C. parapsilosis (PCR) C. tropicalis (PCR) Enterobacteriac sp PCR E. cloacae complex PCR Enterococcus sp PCR E. coli (PCR) H. influenzae (PCR) Klebsiella oxytoca PCR Klebsiella pneumoniae List. monocytogenes PCR N. meningitidis (PCR) Proteus species (PCR) Serratia marcescens PCR Staphylococcus sp PCR Staph aureus (PCR) mecA-Methicil Res Gene Streptococcus sp PCR Group A Strep (PCR) Strep agalactiae (PCR) Strep pneumoniae (PCR) P. aeruginosa (PCR) Aviva/B-Vanco Res Genes KPC-Carbap Res Gene PCR PFSH Surgical History Status post hernia repair Status post knee surgery Social History household members: spouse Smoking Status: Never smoker second hand exposure: Yes (I was when I was growing up) alcohol intake: never substance use type: does not use Assessment & Plan Assessment & Plan narrative: #acute COVID pneumonia, resolving Phenomenal recovery now ambulating on RA if he remains stable on RA through tomorrow and does well eating and eliminating he may be suitable to discharge #Leukocytosis Persistent elevation today despite clinical improvement. best candidate we have for a source is : #gram positive jessee bacteremia s&s pending converting vanc/zosyn to azithro PO #Acute respiratory failure due to COVID pneumonia, resolved #Acute Urinary Obstruction, resolved #Constipation: continue bowel regimen #Essential hypertension: continue home losartan and hydrochlorothiazide #PVCs noted over the weekend, electrolytes wnl, continue to monitor #Transaminitis: Due to acute illness with COVID medications. Will continue to monitor. DVT ppx: lovenox Code: Full code - does not desire intubation for hypoxia MDM: Becky diet: as tolerated COVID-19 COVID-19 status: Positive Quality VTE Deep Vein Thrombosis/Pulmonary Embolism Present on Admission: No
[2021-04-24] MEDS: REMDESIVIR 100 MG in SODIUM CHLORIDE 0.9% 230 ML 250 ML IV (21:18)
[2021-04-24] MEDS: MELATONIN 3 MG TABLET 6 MG PO (21:19)
[2021-04-25 04:00] VITALS: BP 103/55; PULSE 66; RESP 21; TEMP 36.7; O2SAT 94
--- NOTE | 2021-04-25 06:28 | PC.NURSE ---
Electrical Instrument Technician Note-Patient slept throughout the night without oxygen, SpO2 remained >92%, occasional dry cough, denies respiratory distress, says I feel pretty good SB/SR, afebrile.
[2021-04-25 08:00] VITALS: BP 108/75; PULSE 66; RESP 21; TEMP 36.6; O2SAT 96
[2021-04-25 08:37] VITALS: PULSE 86; RESP 27; O2SAT 88
--- NOTE | 2021-04-25 08:54 | P.PN_ITS ---
Subjective Subjective Date Patient Seen: 04/25/21 Time Patient Seen: 08:45 Exam Vital Signs (past 8 hours): - 04/25/21 04:00 04/25/21 08:00 04/25/21 08:37 Temperature 98.0 F 97.8 F Pulse Rate 66 66 86 Respiratory Rate 21 21 27 H Blood Pressure 103/55 L 108/75 Pulse Oximetry 94 96 88 L Fraction of Inspired Oxygen 100 Oxygen Delivery Method Room Air Oxygen Flow Rate 0 Narrative Exam Narrative: marivel man sitting up on bed eating breakfast. satting 85 on RA. Objective Labs Result Diagrams: 04/24/21 09:30 04/24/21 09:30 Labs: Laboratory Results - last 24 hr 04/24/21 04/24/21 09:30 09:30 WBC 20.1 H RBC 5.17 Hgb 14.0 Hct 43.9 MCV 85.0 MCH 27.2 MCHC 32.0 RDW 14.2 Plt Count 453 H Neut % (Auto) Not Reportable Lymph % (Auto) Not Reportable [place] % (Auto) Not Reportable Eos % (Auto) Not Reportable Baso % (Auto) Not Reportable Lymph # (Auto) Not Reportable [place] # (Auto) Not Reportable Baso # (Auto) Not Reportable Total Counted 100 Seg Neutrophils % 78.0 H Band Neutrophils % 5.0 Lymphocytes % (Manual) 9.0 L Monocytes % (Manual) 8.0 Neutrophils # (Manual) 17398 H RBC Morphology Normal morphology Sodium 137 Potassium 3.6 Chloride 104 Carbon Dioxide 26 BUN 43 H Creatinine 0.86 Estimated GFR > 60.0 BUN/Creatinine Ratio 50.0 H Glucose 171 H Calcium 8.4 Total Bilirubin 1.5 H AST 35 ALT 58 H Alkaline Phosphatase 51 Total Protein 6.6 Albumin 3.4 L Globulin 3.2 Albumin/Globulin Ratio 1.1 PFSH Surgical History Status post hernia repair Status post knee surgery Social History household members: spouse Smoking Status: Never smoker second hand exposure: Yes (I was when I was growing up) alcohol intake: never substance use type: does not use Quality VTE Deep Vein Thrombosis/Pulmonary Embolism Present on Admission: No
[2021-04-25] MEDS: guaiFENesin ER 600 MG TAB PO (09:18)
[2021-04-25] MEDS: ENOXAPARIN 40 MG/0.4 ML SYRINGE SUBCUT (09:18)
[2021-04-25] MEDS: PANTOPRAZOLE DR 40 MG TABLET PO (09:18)
[2021-04-25] MEDS: BENZONATATE 100 MG CAPSULE 200 MG PO (09:18)
[2021-04-25] MEDS: DEXAMETHASONE 10 MG/ML VIAL 6 MG IV (09:18)
[2021-04-25] MEDS: AZITHROMYCIN 250 MG TABLET PO (09:18)
[2021-04-25] MEDS: HYDROCODONE/ACET 5/325 TABLET 1 TAB PO (09:19)
[2021-04-25] MEDS: hydroCHLOROthiazide 25 MG TABLET 12.5 MG PO (09:19)
[2021-04-25] MEDS: LOSARTAN 50 MG TABLET PO (09:19)
[2021-04-25] MEDS: LORazepam 0.5 MG TABLET PO (09:19)
[2021-04-25] MEDS: BARICITINIB 2 MG TABLET 4 MG PO (09:20)
[2021-04-25] MEDS: SODIUM CHLORIDE 0.9% FLUSH 10 ML IV (09:20)
[2021-04-25 09:55] LABS: Alanine Aminotransferase 45 IU/L (<50); Albumin 3.2 g/dL (3.5-5.0); Albumin Globulin Ratio 1.1 (1.0-2.8); Alkaline Phosphatase 50 U/L (38-126); Aspartate Aminotransferase 29 IU/L (17-59); BUN Creatinine Ratio 52.4 (6-22); Bilirubin Total 1.2 mg/dL (0.2-1.3); Blood Urea Nitrogen 43 mg/dL (9-20); Calcium 8.3 mg/dL (8.4-10.2); Carbon Dioxide 25 mmol/L (22-32); Chloride 106 mmol/L (98-107); Estimated Glomerular Filt Rate > 60.0 mL/min (>60); Glucose 164 mg/dL (80-110); HEMOLYSIS < 15 (0-50); Potassium 3.5 mmol/L (3.4-5.1); Sodium 137 mmol/L (137-145); Total Protein 6.2 g/dL (6.3-8.2)
[2021-04-25 09:56] LABS: Add Manual Diff / Slide Review YES; Hematocrit 41.9 % (41-53); Hemoglobin 13.8 g/dL (13.5-17.5); Mean Corpuscular HGB Conc 32.9 % (30-36); Mean Corpuscular Hemoglobin 27.9 PG (26-34); Mean Corpuscular Volume 84.8 fL (80-100); Platelet Count 408 X10^3/uL (150-400); Red Blood Cell Count 4.94 X10^6/uL (4.5-5.9); Red Cell Distribution Width 14.3 % (11.6-14.8); White Blood Cell Count 18.6 X10^3/uL (4.5-11.0)
[2021-04-25 10:39] LABS: Neutrophils Absolute Manual 14508 /uL (3000-5900); Total Cells Counted 100
[2021-04-25 10:40] LABS: RBC Morphology Normal Morphology
[2021-04-25 12:00] VITALS: BP 136/74; PULSE 85; RESP 20; TEMP 36.4; O2SAT 93
[2021-04-25 12:45] VITALS: PULSE 78; RESP 22; O2SAT 94
--- NOTE | 2021-04-25 13:38 | PM.DS.1 ---
History of Present Illness History of Present Illness Date Patient Seen: 04/25/21 Time Patient Seen: 12:00 Chief complaint: difficulty breathing Narrative: Pt did well off oxygen on RA is still occasionally desatting into the 80s but can pick it up with extra breaths. showered. eating. feeling much better. Discharge Providers Provider Date of admission: 04/16/21 02:53 Discharge Date: 04/25/21 Primary care physician: MOJGAN Prince Consults: 04/16/21 18:58 Consult to Respiratory Therapy Evaluate & Treat Comment: Physician Instructions: Evaluate and treat 04/16/21 19:18 Consult to Respiratory Therapy Evaluate & Treat Comment: Physician Instructions: Evaluate and treat 04/24/21 08:59 Consult to Occupational Therapy Evaluate & Treat Comment: Physician Instructions: Evaluate and treat Consult to Physical Therapy Evaluate & Treat Comment: Physician Instructions: Evaluate and Treat Discharge provider: Vamshi Key MD Summary Hospital Course Discharge Diagnosis: covid 19 pneumonia with severe respiratory distress Hospital Course: Mr. Dueñas is a partially vaccinated covid patient who presented in extreme respiratory distress and required high flow heated oxygen for most of his stay. We were able to avoid intubation and patient effected a remarkable recovery was able to discontinue high O2 demands 2 days ago. Since then he has regained his appetite and is working on his energy. He did develop a leukocytosis thoguht to be 2/2 nosocomial infection either bladder or lung for which he was treated with IV vanc/zosyn and then converted to azithromycin PO. He idd have some gram positive rods found in one blood culture vial. His WBCs were trending back down by DoD he will complete azithromycin course at home. Status at Discharge Cognitive/behavioral status at discharge: oriented and at baseline, oriented Functional status at discharge: independent ambulation Overall status at discharge: patient is progressing back to baseline Exam Vital Signs (past 8 hours): - 04/25/21 08:00 04/25/21 08:37 04/25/21 12:00 Temperature 97.8 F 97.6 F Pulse Rate 66 86 85 Respiratory Rate 21 27 H 20 Blood Pressure 108/75 136/74 Pulse Oximetry 96 88 L 93 04/25/21 12:45 Temperature Pulse Rate 78 Respiratory Rate 22 Blood Pressure Pulse Oximetry 94 Fraction of Inspired Oxygen 100 Oxygen Delivery Method Room Air Oxygen Flow Rate 0 Narrative Exam Narrative: perky donovan sitting up at bedside eating lunch with gusto Const General: cooperative and healthy appearing [facility] Head: normal to inspection Eyes General: appearance normal, both eyes and all related structures Resp Other: moving air well. some crackles on the L but generally clear to auscultation. Cardio Rate: regular rate Rhythm: regular rhythm Heart Sounds: S1 normal and S2 normal GI Palpation: soft Auscultation: normal bowel sounds Skin General: no rashes or lesions noted Neuro General: patient alert, patient awake, patient oriented x3, moves all extremities, CN's II-XI intact bilaterally and other (decreased tone) Extrem General: full ROM and muscle atrophy Psych Appearance: grossly normal and well kempt Mental Status: mental status grossly normal Mood: expansive Affect: elated (thrilled to be alive) Objective Labs Result Diagrams: 04/25/21 09:35 04/25/21 09:35 Labs: Laboratory Results - last 24 hr 04/25/21 04/25/21 09:35 09:35 WBC 18.6 H RBC 4.94 Hgb 13.8 Hct 41.9 MCV 84.8 MCH 27.9 MCHC 32.9 RDW 14.3 Plt Count 408 H Neut % (Auto) Not Reportable Lymph % (Auto) Not Reportable Spink % (Auto) Not Reportable Eos % (Auto) Not Reportable Baso % (Auto) Not Reportable Lymph # (Auto) Not Reportable Spink # (Auto) Not Reportable Baso # (Auto) Not Reportable Total Counted 100 Seg Neutrophils % 77.0 H Band Neutrophils % 1.0 L Lymphocytes % (Manual) 9.0 L Monocytes % (Manual) 9.0 Eosinophils % (Manual) 1.0 L Metamyelocytes % 1.0 H Myelocytes % 2.0 H Neutrophils # (Manual) 81844 H RBC Morphology Normal morphology Sodium 137 Potassium 3.5 Chloride 106 Carbon Dioxide 25 BUN 43 H Creatinine 0.82 Estimated GFR > 60.0 BUN/Creatinine Ratio 52.4 H Glucose 164 H Calcium 8.3 L Total Bilirubin 1.2 AST 29 ALT 45 Alkaline Phosphatase 50 Total Protein 6.2 L Albumin 3.2 L Globulin 3.0 Albumin/Globulin Ratio 1.1 PFSH Surgical History Status post hernia repair Status post knee surgery Social History household members: spouse Smoking Status: Never smoker second hand exposure: Yes (I was when I was growing up) alcohol intake: never substance use type: does not use Discharge Assessment & Plan Assessment and Plan Assessment: #acute COVID pneumonia, resolving Phenomenal recovery now ambulating on RA/2L will discharge on home O2 and f/u with me as PCP #Leukocytosis trending down today. complete azithromycin course at home #gram positive jessee bacteremia - diphtherioid in one bottle s/p broad spec tx likely contaminant #Acute respiratory failure due to COVID pneumonia, resolved #Acute Urinary Obstruction, resolved monzon out #Constipation: continue bowel regimen #Essential hypertension: continue home losartan and hydrochlorothiazide #PVCs noted over the weekend, electrolytes wnl, doing ok now #Transaminitis: Due to acute illness with COVID medications. Will continue to monitor. f/u outpt. dispo: home Discharge Plan Discharge Plan Patient Disposition: Home Discharge orders & Medications Prescriptions: New azithromycin [Zithromax Z-Luke] 250 mg Tablet 250 mg PO DAILY 3 Days Qty: 3 RF: 0 Continued albuterol sulfate 90 mcg/actuation HFA aerosol inhaler 2 puff inhalation Q4-6H PRN (Reason: shortness of breath or wheezing) Qty: 8.5 RF: 0 (DME) B[employer]he[employer] MDI Spacer Spacer See Rx Instructions .Route Qty: 1 RF: 0 benzonatate [Tessalon Perles] 100 mg capsule 100 mg PO BID PRN (Reason: cough) Qty: 20 RF: 0 losartan 50 mg tablet 50 mg PO DAILY Qty: 90 RF: 2 hydrochlorothiazide 12.5 mg tablet 12.5 mg PO DAILY Qty: 30 RF: 0 ranitidine HCl 150 mg tablet 150 mg PO Q3D RF: 0 Follow up/Referrals: Dameon Lee ARNP [Primary Care Provider] - Vamshi Key MD [Physician] - Diet/Activity/Treatments Diet: Diet as Tolerated Activity: as tolerated Oxygen: 2L via NC for post covid pneumonia Skin/Wound/Dressing Care Report to your healthcare provider any signs of infection, such as:: chills, fever, night sweats and increased pain Visit Report/Discharge Packet Instructions: Home Oxygen Therapy, DI for COVID-19 (Suspected or Confirmed ) Discharge Data Primary Care Provider: Dameon Lee VTE Deep Vein Thrombosis/Pulmonary Embolism Present on Admission: No
--- NOTE | 2021-04-25 15:34 | PC.NURSE ---
Discharge Note Discharge instructions given on covid and continuing precautions, home oxygen use (able to do return demo), and azithromycin. PICC line removed without issue. to transport patient. Cell phone, risk and insurance manager, and clothing all with pt.
== END 2021-04-25 15:49 | disposition home or self-care (01) | DRG 177 ==
LOC: ED 04-16 02:12 → AC 04-16 02:54 → ICU 04-17 07:38
PROVIDERS: Family Medicine; Internal Medicine; Admitting Provider Family Medicine; Emergency Provider Emergency Medicine; PCP Nurse Practitioner Family; Referring Provider Emergency Medicine; Visit Provider Family Medicine
DX: U07.1 COVID-19 (principal); J12.82 Pneumonia due to coronavirus disease 2019; J96.01 Acute respiratory failure with hypoxia; J98.8 Other specified respiratory disorders; R33.9 Retention of urine, unspecified; K21.9 Gastro-esophageal reflux disease without esophagitis; D64.9 Anemia, unspecified; R74.01 Elevation of levels of liver transaminase levels; K59.00 Constipation, unspecified; I49.3 Ventricular premature depolarization; K44.9 Diaphragmatic hernia without obstruction or gangrene; M40.204 Unspecified kyphosis, thoracic region
CPT/HCPCS: 36415; 36569; 36592; 36600; 71045; 71046; 80048; 80053; 80202; 82550; 82553; 82728; 82805; 83605; 83615; 83735; 83880; 84145; 84484; 85007; 85025; 85379; 86140; 87040; 87150; 87205; 87633; 87635; 87797; 93005; 93971; 94640; 94660; 94760; 94762; 96365; 96375; 99233; 99284; 99285; J0360; J1100; J1642; J1650; J1940; J2060; J2543; J7613

== ENCOUNTER → 2022-02-26 14:34 | Outpatient (CLI) | payer OTHER, SELFPAY ==
[2021-04-16 03:22] VITALS: BMI 33.6
[2021-04-22 23:10] VITALS: PULSE 73; RESP 18; O2SAT 95
--- NOTE | 2022-02-26 14:35 | DI.US.S_ITS ---
PROCEDURE: US ABDOMEN LIMITED INDICATIONS: Unilateral inguinal hernia TECHNIQUE: Real-time focused scanning was performed of the abdomen, with image documentation. COMPARISON: None. FINDINGS: Right indirect inguinal hernia containing fat. The hernia is reducible. No fluid collection. IMPRESSION: Right fat containing inguinal hernia. Dictated by: Max Bragg M.D. on 02/26/2022 at 17:14 Approved by: Max Bragg M.D. on 02/26/2022 at 17:16
== END ==
PROVIDERS: PCP Family Medicine; Referring Provider Family Medicine; Visit Provider Family Medicine
DX: K40.90 Unilateral inguinal hernia, without obstruction or gangrene, not specified as recurrent (principal)
CPT/HCPCS: 76705

== ENCOUNTER → 2022-05-06 11:50 | Outpatient (CLI) | payer OTHER, SELFPAY ==
[2021-04-16 03:22] VITALS: BMI 33.6
[2021-04-22 23:10] VITALS: PULSE 73; RESP 18; O2SAT 95
[2022-05-06 12:39] LABS: COVID19 -Nasal RAPID Negative (Negative)
== END ==
PROVIDERS: PCP Family Medicine; Visit Provider Surgery
DX: Z20.822 Contact with and (suspected) exposure to COVID-19 (principal); Z01.812 Encounter for preprocedural laboratory examination
CPT/HCPCS: 87635; C9803

== ENCOUNTER 2022-05-07 09:13 | Day surgery (SDC) | payer OTHER, SELFPAY ==
[2021-04-16 03:22] VITALS: BMI 33.6
[2021-04-22 23:10] VITALS: PULSE 73; RESP 18; O2SAT 95
[2022-04-29 07:39] VITALS: BMI 35.1
[2022-05-07] VITALS (11 sets, daily range): BP systolic 102–150; BP diastolic 60–93; PULSE 64–77; RESP 14–20; TEMP 35.8–36.8; O2SAT 94–99; BMI 35.1
[2022-05-07] MEDS: LACTATED RINGERS 1,000 ML 100 ML IV ×2 (09:57→13:24)
--- NOTE | 2022-05-07 10:58 | PM.HP.1 ---
History of Present Illness History of Present Illness Date Patient Seen: 05/07/22 Time Patient Seen: 10:58 Chief complaint: [facility] Narrative: 66-year-old man here for a elective open right inguinal hernia repair of a symptomatic reducible inguinal hernia. No interval changes in health. Please refer to the H& P from March 2022 for further detail. Patient History Medical History Asthma Hypertension Pneumonia due to COVID-19 virus (04/16/21) Surgical History H/O knee surgery Status post hernia repair Status post knee surgery Family & Social History Social History: household members spouse Tobacco & Substance use: Smoking Status Never smoker alcohol intake never Substance Use Type does not use Meds Home Medications and Allergies Home Medications Medication Instructions Recorded Confirmed Type losartan 50 mg tablet 50 mg PO DAILY #90 tabs 10/19/19 05/07/22 Rx hydrochlorothiazide 12.5 mg tablet 12.5 mg PO DAILY #30 tabs 11/01/20 05/07/22 Rx Allergies Allergy/AdvReac Type Severity Reaction Status Date / Time No Known Drug Allergies Allergy Verified 03/13/22 15:41 Exam Vital Signs (past 8 hours): - 05/07/22 09:40 Temperature 96.5 F L Pulse Rate 77 Respiratory Rate 20 Blood Pressure 133/85 Pulse Oximetry 98 Oxygen Delivery Method Room Air Oxygen Delivery Method Room Air Narrative Exam Narrative: General adult male alert oriented no acute distress Abdomen right inguinal hernia marked with my initials Assessment & Plan Assessment and plan (1) Right inguinal hernia: Status: Acute Assessment & Plan narrative: 66-year-old man with a symptomatic reducible right inguinal hernia here for elective open repair. Overview the operation was discussed with patient and. Operative risks including bleeding, infection, recurrence, damage to surrounding structures, chronic pain were discussed. His questions have been answered he is in agreement with this plan. Time Spent With Patient Critical Care time: I spent a total of [] minutes of critical care time on this patient's care today; this time is exclusive of procedural time.
[2022-05-07] MEDS: SCOPOLAMINE 1 PATCH TOP (11:00)
[2022-05-07] MEDS: CEFAZOLIN 2 GM/100 ML PREMIX 100 ML IV (11:20)
[2022-05-07] MEDS: BUPIVACAINE 0.5% MDV 50 ML INJ (11:39)
--- NOTE | 2022-05-07 11:41 | SUR.OPER ---
Supine on padded OR bed, head on pillow, arms secured on padded arm boards at <90 degrees abduction, legs uncrossed, safety belt at thigh, tape over blanket over lower legs.
--- NOTE | 2022-05-07 13:14 | P.OP_ITS ---
Operative Date/Time/Diagnoses Date of procedure: 05/07/22 Time of procedure: 13:14 Pre-op diagnosis: Right Inguinal hernia Post-op diagnosis: same Procedure & Clinicians Procedure: open right inguinal hernia repair Same procedure as scheduled: Yes Indications: Symptomatic right inguinal hernia Surgeon: Faustino Mata Anesthesia Type: General Operative Notes Findings: Large inguinal hernia extending into the scrotum containing bowel Specimen(s): none sent Estimated Blood Loss (mL): 50 Procedure in detail: The patient was placed supine on the table and bilateral lower extremity compression devices were applied. Anesthesia was induced they were intubated with an LMA and received Ancef. A time-out was performed. They were prepped and draped in sterile fashion. The right external inguinal ring and the anterior superior iliac crest were identified and marked. 1 finger breath above the inguinal ligament the skin was infiltrated with 0.25% bupivacaine. The skin incision was made here and the subcutaneous tissues were divided with electrocautery exposing the external oblique aponeurosis which was then opened along the direction of its fibers. The cord was carefully dissected away from the inguinal canal adjacent to the pubic tubercle. There was a very large indirect inguinal hernia extending into the scrotum. The cord was encircled with a [place] drain. No direct floor defect was identified. The cremasteric fibers surrounding the cord were divided using electrocautery adjacent to the internal ring.. The vas deferens and the testicular vessels were preserved and protected. The indirect hernia on the anterior medial aspect of the cord which was skeletonized away from the vas deferens and testicular blood supply, it contained viable small bowel. I selected a 7x 15 cm lightweight Pro Loop hernia mesh. The inferior medial aspect of the mesh was anchored to insertion of the rectus muscle to the pubic tubercle such that there was approximately 2 cm of tubercle overlap with Ethibond and then was run continuously along the inferior edge of the mesh to the shelving edge of the inguinal ligament. Interrupted 3 0 Vicryl suture was used to anchor the superior aspect of the mesh to the conjoined tendon in several places. The tails were then reapproximated loosely around the spermatic cord. The tails of the mesh were then tucked under the external oblique aponeurosis. The repair was checked for hemostasis. The wound was irrigated with sterile saline. The external oblique aponeurosis was reapproximated in a running fashion using 3 0 Vicryl. The subcutaneous tissues were reapproximated with 3 0 Vicryl skin closed with 4 0 Monocryl followed by the application of Dermabond. At the end of the operation I ensured that both testicles were within the scrotum. The sponge instrument count at the end operation was correct. The patient emerged from anesthesia was extubated and transferred to the postoperative care unit in stable condition. A total of 30 ml of of 0.25% bupivicaine was used to infiltrate the skin. Complications: none Post-operative Disposition: same day surgery
[2022-05-07] MEDS: OXYCODONE IR 5 MG TABLET PO (13:17)
[2022-05-07] MEDS: HYDROMORPHONE 2 MG INJ IV (13:22)
[2022-05-07] MEDS: KETOROLAC 30 MG/ML VIAL IV (13:22)
--- NOTE | 2022-05-07 13:35 | SUR.PHASEI ---
Handoff to [facility] for lunch break.
[2022-05-07] MEDS: ONDANSETRON 4 MG ODT SL (14:39)
== END 2022-05-07 14:55 | disposition home or self-care (01) ==
PROVIDERS: PCP Family Medicine; Referring Provider Surgery; Visit Provider Surgery
PROC: (CPT 49505; principal; 2022-05-07 10:45)
DX: K40.90 Unilateral inguinal hernia, without obstruction or gangrene, not specified as recurrent (principal); I10 Essential (primary) hypertension
CPT/HCPCS: 49505; J0690; J1100; J1170; J1885; J2250; J2405; J2704; J3010

== ENCOUNTER → 2023-05-06 13:03 | Outpatient (CLI) | payer OTHER, SELFPAY ==
[2021-04-16 03:22] VITALS: BMI 33.6
[2021-04-22 23:10] VITALS: PULSE 73; RESP 18; O2SAT 95
--- NOTE | 2023-05-06 | DI.RAD.S_ITS ---
PROCEDURE: XR KNEE LT 3V INDICATIONS: KNEE PAIN TECHNIQUE: 3 views of the knee were acquired. COMPARISON: None. FINDINGS: Bones: No fractures or dislocations. Moderate tricompartmental osteoarthritis is seen more notably in medial femoral tibial compartment. No patellar subluxation. No suspicious bony lesions. Soft tissues: No joint effusion. No suspicious soft tissue calcifications. IMPRESSION: Moderate tricompartmental osteoarthritis. No fracture or dislocation. No significant joint effusion. Dictated by: Saud Coyle M.D. on 05/06/2023 at 16:27 Approved by: Saud Coyle M.D. on 05/06/2023 at 16:27
--- NOTE | 2023-05-06 | DI.RAD.S_ITS ---
PROCEDURE: XR KNEE RT 3V INDICATIONS: KNEE PAIN TECHNIQUE: 3 views of the knee were acquired. COMPARISON: None. FINDINGS: Bones: No fractures or dislocations. Moderate tricompartmental osteoarthritis is seen most notably in medial femoral tibial compartment. No patellar subluxation. No suspicious bony lesions. Soft tissues: Moderate suprapatellar joint effusion. No suspicious soft tissue calcifications. IMPRESSION: No right knee fracture or dislocation. Moderate tricompartmental osteoarthritis and moderate joint effusion. Dictated by: Saud Coyle M.D. on 05/06/2023 at 16:27 Approved by: Saud Coyle M.D. on 05/06/2023 at 16:40
== END ==
PROVIDERS: PCP Family Medicine; Referring Provider Family Medicine; Visit Provider Family Medicine
DX: M25.561 Pain in right knee (principal); M25.562 Pain in left knee; M17.0 Bilateral primary osteoarthritis of knee; M25.461 Effusion, right knee
CPT/HCPCS: 73562

== ENCOUNTER → 2024-05-26 15:44 | Outpatient (CLI) | payer OTHER, SELFPAY ==
[2021-04-16 03:22] VITALS: BMI 33.6
[2021-04-22 23:10] VITALS: PULSE 73; RESP 18; O2SAT 95
--- NOTE | 2024-05-26 15:45 | DI.US.S_ITS ---
PROCEDURE: US ABDOMEN LIMITED INDICATIONS: INGUINAL HERNIA TECHNIQUE: Real-time focused scanning was performed of the inguinal region, with image documentation. COMPARISON: [facility], , US ABDOMEN LIMITED, 02/26/2022, 14:44. FINDINGS: Along the area of concern, there is a reducible, right inguinal fat containing hernia. The neck measures 1.1 x 0.8 cm. IMPRESSION: Small fat containing right inguinal hernia. Dictated by: Adrián Menendez M.D. on 05/26/2024 at 16:51 Approved by: Adrián Menendez M.D. on 05/26/2024 at 16:54
== END ==
LOC: US 15:45
PROVIDERS: PCP Registered Nurse; Referring Provider Family Medicine; Visit Provider Family Medicine
DX: K40.91 Unilateral inguinal hernia, without obstruction or gangrene, recurrent (principal)
CPT/HCPCS: 76705

== ENCOUNTER 2024-07-27 07:21 | Day surgery (SDC) | payer OTHER, SELFPAY ==
[2021-04-16 03:22] VITALS: BMI 33.6
[2021-04-22 23:10] VITALS: PULSE 73; RESP 18; O2SAT 95
[2024-07-22 10:02] VITALS: BMI 34.0
--- NOTE | 2024-07-26 11:48 | P.HP_ITS ---
History of Present Illness History of Present Illness Date Patient Seen: 07/27/24 Time Patient Seen: 08:31 Chief complaint: Lap repair recurrent R inguinal hernia poss L Narrative: 68M with a recurrent right inguinal possible left hernia here for elective lap repair. No interval change in health. [facility] Medical History (Updated 07/22/24 @ 10:07 by Conchis Gaffney, RN) Anesthesia complication Asthma Pneumonia due to COVID-19 virus (04/16/21) Hypertension Surgical History (Updated 07/22/24 @ 10:06 by Conchis Gaffney RN) Hx of right inguinal hernia repair (05/07/22) H/O knee surgery Status post knee surgery Status post hernia repair Social History household members: spouse Smoking Status: Never smoker second hand exposure: Yes (I was when I was growing up) alcohol intake: current substance use type: does not use Meds Home Medications and Allergies Home Medications Medication Instructions Recorded Confirmed Type losartan 50 mg tablet 50 mg PO DAILY #90 tabs 10/19/19 07/27/24 Rx meloxicam 15 mg tablet 15 mg PO DAILY 07/27/24 07/27/24 History omeprazole 20 mg capsule,delayed 20 mg PO DAILY 07/27/24 07/27/24 History release Allergies Allergy/AdvReac Type Severity Reaction Status Date / Time No Known Drug Allergies Allergy Verified 07/27/24 07:44 Exam Narrative Exam Narrative: Gen-Adult man alert and oriented Assessment & Plan Assessment and plan (1) Recurrent right inguinal hernia: Status: Acute Assessment & Plan narrative: 68M recurrent right possible bilateral inguinal hernia here for elective lap repair. Overview of the operation discussed. Operative risks and benefits once again reviewed and he provides his informed consent to proceed. Time-Based Coding :: [TOTAL MINUTES] spent with patient and on the chart (including review of chart, obtaining history, exam, reviewing outside data, placing orders, documenting ex am and treatment plan, and counseling patient) on [DATE].
[2024-07-27] VITALS (9 sets, daily range): BP systolic 112–181; BP diastolic 66–103; PULSE 66–78; RESP 10–18; TEMP 36.1–36.9; O2SAT 90–98; BMI 34.4
[2024-07-27] MEDS: LACTATED RINGERS 1,000 ML 42 ML IV ×2 (07:48→09:34)
--- NOTE | 2024-07-27 08:46 | PM.OP.1 ---
Operative Date/Time/Diagnoses Date of procedure: 07/27/24 Time of procedure: 08:46 Pre-op diagnosis: Recurrent right inguinal hernia Post-op diagnosis: same Procedure & Clinicians Procedure: Laparoscopic repair of recurrent right inguinal hernia Same procedure as scheduled: Yes Indications: 68-year-old man with symptomatic right inguinal hernia possible left inguinal hernia here for laparoscopic repair Surgeon: Faustino Mata Anesthesia Type: General Operative Notes Findings: No left inguinal hernia Right femoral hernia and cord lipoma Specimen(s): none sent Estimated Blood Loss (mL): 10 Procedure in detail: The patient was brought to the operating room and placed supine on the table. Bilateral sequential compression devices were applied. General anesthesia was induced and they were intubated with an endotracheal tube. A monzon cath was placed in sterile fashion. They received 2 g Ancef prior to skin incision. They were prepped and draped in sterile fashion. A time out was performed to ensure the correct patient, procedure and necessary equipment within the operating room. The skin was infiltrated with 0.25% bupivicaine. A 1 cm infra umbilical midline incision was made. The fascia was sharply incised and the abdomen entered traumatically. A 10mm balloon port was placed and pneumoperitoneum was established at 15mm Hg. Inspection of the abdomen demonstrated no evidence of injury upon entry. Two 5 mm ports were then placed under direct visualization in the right and left lower quadrant lateral to the rectus muscle. No findings of a left inguinal hernia. There was a recurrent right inguinal hernia which appeared to have a loop of the small bowel entering through a femoral hernia. The peritoneum 4 cm superior to the deep inguinal ring between the medial umbilical ligament and the anterior superior iliac spine was incised. The medial preperitoneal dissection was carried out into the space of Retzius bluntly, the bladder was swept inferiorly, the pubis and Ry's ligament were identified. Next attention was turned towards the lateral aspect of the peritoneal flap. The preperitoneal fat with the testicular vessels was carefully dissected off the inferior peritoneal flap. The cord was carefully inspected there was a cord lipoma which was skeltonized off the cord preserving the testicular vessels and the vas deferns. There was no direct hernia. There was a loop of small bowel entering through a femoral defect. Small bowel was reduced and its attachments were divided.. A large Bard 3D Max mesh was then placed into the abdomen and positioned such that the myopectineal orifice was completely covered with good overlap on all sides. The peritoneal flap was then repositioned back to its original position and a running V lock suture was used to close the peritoneum such that no bowel could herniate into the preperitoneal space. The area was examined for hemostasis. The 5mm trocars were removed under direct visualization and pneumoperitoneum was deflated through the umbilical trocar, The fascia at the umbilicus was closed with 0-Vicryl in figure of 8 fashion, skin closed with 4-0 Monocyl followed by Dermabond. The sponge and instrument count at the end of the case was correct. Both testicles were entirely within the scrotum at the end of the case. The patient emerged from anesthsia was extubated and transferred to recovery in stable condition. Complications: none Post-operative Condition: stable Disposition: same day surgery
[2024-07-27] MEDS: CEFAZOLIN 2 GM/100 ML PREMIX 100 ML IV (09:00)
--- NOTE | 2024-07-27 09:10 | SUR.OPER ---
Supine on padded OR bed, head on pillow, arms padded and tucked at sides, legs uncrossed, safety belt at thigh, tape over blanket over lower legs .
[2024-07-27] MEDS: BUPIVACAINE 0.25% (PF) VIAL 30 ML INJ (09:15)
[2024-07-27] MEDS: ONDANSETRON 4 MG/2 ML INJ IV (12:16)
[2024-07-27] MEDS: METOCLOPRAMIDE 10 MG/2 ML INJ IV (12:55)
== END 2024-07-27 14:27 | disposition home or self-care (01) ==
PROVIDERS: PCP Registered Nurse; Referring Provider Surgery; Visit Provider Surgery
PROC: 0YQ54ZZ Repair Right Inguinal Region, Percutaneous Endoscopic Approach (ICD-10-PCS; CPT 49651; principal; 2024-07-27 08:45)
DX: K40.91 Unilateral inguinal hernia, without obstruction or gangrene, recurrent (principal)
CPT/HCPCS: 49651; 82962; J0330; J0690; J1100; J1171; J2250; J2405; J2704; J2765; J3010